=== PATIENT | female | born 1990 | race Caucasian/White ===

== ENCOUNTER 2018-09-25 22:54 | Inpatient (IN) | payer OTHER ==
[~2018-09-25] VITALS: Ht 167.6 cm; Wt 69.6 kg
[2018-09-26] VITALS (18 sets, daily range): BP systolic 80–119; BP diastolic 51–78; PULSE 80–107; RESP 4–47; Ht 167.6 cm; Wt 69.6 kg
[2018-09-26] MEDS ORDERED: PIPER-TAZO 3.375 GM IV (PMX) 100 ML IVPB STA (01:35)
[2018-09-26] MEDS ORDERED: SODIUM CHLORIDE 0.9% 1L BAG IV* STA (01:35)
[2018-09-26] MEDS ORDERED: VANCOMYCIN 1 GM (PMX) 250 ML IVPB STA (01:35)
[2018-09-26] MEDS ORDERED: morphine 4 MG/ML VIAL IV STA (01:35)
--- NOTE | 2018-09-26 01:43 | ERD ---
ER Documentation Chief Complaint Chief Complaint Pt reports R breast "mass" that has gotten worse over last 4 days HPI 28-year-old female presenting with right breast pain for the past 3 weeks, that has worsened over the last 4 days. She initially felt a lump in the right upper breast. She went to [facility] to get evaluated for this at that time. She had some clear yellow fluid leaking from the site. She was told that she had a breast cyst and was placed on antibiotics and pain medications. However her symptoms have not been improving and now she has noticed redness that has spread all over her breast with associated mass on the right lower breast. She has had associated intermittent fevers. Pain is a 7 out of 10, radiating all over her right breast. No other associated symptoms. No discharge from the nipple. She is not currently breast-feeding. ROS All systems reviewed and are negative except as per history of present illness. Allergies Allergies: Coded Allergies: No Known Allergy (Verified Allergy, Unknown, 11/04/07) PMhx/Soc Medical and Surgical Hx: pt denies Medical Hx, pt denies Surgical Hx FmHx No cancer Family History: diabetes (Father) Physical Exam Vitals Vital Signs Date Temp Pulse Resp B/P (MAP) Pulse Ox O2 O2 Flow FiO2 Time Delivery Rate 09/25/18 99.2 110 20 134/83 100 22:59 (100) Physical Exam Const: No acute distress Head: Atraumatic Eyes: Normal Conjunctiva ENT: Normal External Ears, Nose and Mouth. Neck: Full range of motion. No meningismus. Resp: Clear to auscultation bilaterally Breast: Left breast normal. Right breast with extensive erythema and dark discoloration surrounding and involving the whole right breast. There is a fluctuant large abscess in the right lower breast. Tenderness to palpation. No crepitus. No drainage. Cardio: Regular rate and rhythm, no murmurs Abd: Soft, non tender, non distended. Normal bowel sounds Skin: No petechiae or rashes Back: No midline or flank tenderness Ext: No cyanosis, or edema Neur: Awake and alert Psych: Normal Mood and Affect Result Diagram: 09/26/1814409/26/18144 Results 24 hrs Laboratory Tests Test 09/26/18 01:45 White Blood Count 9.3 10^3/ul Red Blood Count 4.43 10^6/ul Hemoglobin 11.3 g/dl Hematocrit 34.0 % Mean Corpuscular Volume 76.7 fl Mean Corpuscular Hemoglobin 25.5 pg Mean Corpuscular Hemoglobin Concent 33.2 g/dl Red Cell Distribution Width 12.7 % Platelet Count 447 10^3/UL Mean Platelet Volume 9.2 fl Immature Granulocytes % 0.300 % Neutrophils % 60.7 % Lymphocytes % 27.2 % Monocytes % 8.8 % Eosinophils % 2.5 % Basophils % 0.5 % Nucleated Red Blood Cells % 0.0 /100WBC Immature Granulocytes # 0.030 10^3/ul Neutrophils # 5.6 10^3/ul Lymphocytes # 2.5 10^3/ul Monocytes # 0.8 10^3/ul Eosinophils # 0.2 10^3/ul Basophils # 0.1 10^3/ul Nucleated Red Blood Cells # 0.0 10^3/ul Prothrombin Time 12.4 Sec Prothrombin Time Ratio 1.0 INR International Normalized Ratio 0.91 Activated Partial Thromboplast Time 24.7 Sec Sodium Level 141 mmol/L Potassium Level 3.9 mmol/L Chloride Level 104 mmol/L Carbon Dioxide Level 28 mmol/L Anion Gap 9 Blood Urea Nitrogen 14 mg/dl Creatinine 0.50 mg/dl Est Glomerular Filtrat Rate mL/min > 60 mL/min Glucose Level 90 mg/dl Lactic Acid Level 0.9 mmol/L Calcium Level 9.4 mg/dl Total Bilirubin 0.1 mg/dl Direct Bilirubin 0.00 mg/dl Indirect Bilirubin 0.1 mg/dl Aspartate Amino Transf (AST/SGOT) 81 IU/L Alanine Aminotransferase (ALT/SGPT) 62 IU/L Alkaline Phosphatase 107 IU/L Total Protein 7.5 g/dl Albumin 4.1 g/dl Globulin 3.40 g/dl Albumin/Globulin Ratio 1.20 Current Medications Medications Dose Sig/Valerie Start Time Status Last (Trade) Ordered Route PRN Stop Time Admin Dose Reason Admin Sodium 2,090 ml BOLUS OVER 2 09/26/18 DC 09/26/18 Chloride HOURS STAT 01:35 09/26/18 02:14 (NS) IV* 01:37 Morphine 4 mg ONCE STAT 09/26/18 DC 09/26/18 Sulfate IV 01:35 09/26/18 01:15 (morphine) 01:37 Vancomycin 250 ml @ ONCE STAT 09/26/18 09/26/18 HCl 125 mls/hr IVPB 01:35 09/26/18 02:53 03:34 Piperacillin 100 ml @ ONCE STAT 09/26/18 DC 09/26/18 Sod/ 200 mls/hr IVPB 01:35 09/26/18 02:13 Tazobactam 02:04 Sod Procedures/MDM EMERGENT LABS AND DIAGNOSTIC STUDIES: Lab Results above were reviewed and interpreted by me. CBC: No leukocytosis. Mild anemia. thrombocytosis, likely secondary to infection CMP: No evidence of electrolyte abnormality, renal failure, hypoglycemia, liver failure, or biliary obstruction Lactate within normal limits without evidence of sepsis or tissue hypoperfusion Radiology Results as interpreted by Radiology below were reviewed by Wagner Cohen MD: Chest x-ray shows no acute abnormalities Right breast ultrasound pending Initial Nursing notes reviewed. Previous Medical Records requested via the Electronic Health Record. EMERGENCY DEPARTMENT COURSE / MEDICAL DECISION MAKING: Patient is presenting with evidence of a right breast abscess with associated cellulitis. Do not suspect necrotizing fasciitis. IV antibiotics were started. Patient will require admission for surgical drainage and IV antibiotics. I spoke with Dr. Yao, the surgeon on-call, who agreed to see the patient in the morning. Accepting Care Team: Current data and ongoing care discussed. Time: Time of admission Primary Provider: Dr. Reich Consulting: Dr. Yao with Gen Surg Outstanding Data: none Departure Diagnosis: Primary Impression: Abscess of right breast Additional Impression: Cellulitis of right breast Condition: Serious GIA COHEN MD Sep 26, 2018 01:43
[2018-09-26] MEDS ORDERED: ONDANSETRON 4 MG INJ IV PRN ×4 (03:00→19:00)
[2018-09-26] MEDS ORDERED: ACETAMINOPHEN 325 MG TAB PO PRN ×2 (03:00→04:00)
[2018-09-26] MEDS ORDERED: ALBUTEROL/IPRATROPIUM (NEB) 3 ML AMP HHN PRN (04:00)
[2018-09-26] MEDS: HYDROCODONE/APAP (5/325) TAB PO PRN ×2 (04:16→12:49)
[2018-09-26] MEDS: SOD CHLORIDE 0.9% 1,000 ML IV SCH ×4 (04:17→23:46)
--- NOTE | 2018-09-26 05:33 | HP ---
Date/Time of Note Date/Time of Note DATE: 09/26/18 TIME: 05:29 Assessment/Plan VTE Prophylaxis Pharmacological prophylaxis: heparin Lines/Catheters IV Catheter Type (from Nrsg): Saline Lock Assessment/Plan Assessment/Plan 1. Right breast cellulitis with possible abscess -IV antibiotic -Obtain breast ultrasound -ID and surgical consult 2. Normocytic anemia: Ferritin/iron to workup for iron deficiency. Can follow this up with PCP for outpatient pelvic ultrasound to evaluate for fibroid Result Diagram: 09/26/18 0145 09/26/18 0145 Results 24hrs Laboratory Tests Test 09/26/18 01:45 09/26/18 03:40 09/26/18 03:53 White Blood Count 9.3 Red Blood Count 4.43 Hemoglobin 11.3 L Hematocrit 34.0 L Mean Corpuscular Volume 76.7 L Mean Corpuscular Hemoglobin 25.5 L Mean Corpuscular Hemoglobin Concent 33.2 Red Cell Distribution Width 12.7 Platelet Count 447 H Mean Platelet Volume 9.2 Immature Granulocytes % 0.300 Neutrophils % 60.7 Lymphocytes % 27.2 Monocytes % 8.8 Eosinophils % 2.5 Basophils % 0.5 Nucleated Red Blood Cells % 0.0 Immature Granulocytes # 0.030 Neutrophils # 5.6 Lymphocytes # 2.5 Monocytes # 0.8 Eosinophils # 0.2 Basophils # 0.1 Nucleated Red Blood Cells # 0.0 Prothrombin Time 12.4 Prothrombin Time Ratio 1.0 INR International Normalized Ratio 0.91 Activated Partial Thromboplast Time 24.7 Sodium Level 141 Potassium Level 3.9 Chloride Level 104 Carbon Dioxide Level 28 Anion Gap 9 Blood Urea Nitrogen 14 Creatinine 0.50 Est Glomerular Filtrat Rate mL/min > 60 Glucose Level 90 Lactic Acid Level 0.9 Calcium Level 9.4 Total Bilirubin 0.1 L Direct Bilirubin 0.00 Indirect Bilirubin 0.1 Aspartate Amino Transf (AST/SGOT) 81 H Alanine Aminotransferase (ALT/SGPT) 62 Alkaline Phosphatase 107 Total Protein 7.5 Albumin 4.1 Globulin 3.40 H Albumin/Globulin Ratio 1.20 Bedside Urine pH (LAB) 7.0 Bedside Urine Protein (LAB) Negative Bedside Urine Glucose (UA) Negative Bedside Urine Ketones (LAB) Negative Bedside Urine Blood 1+ H Bedside Urine Nitrite (LAB) Positive H Bedside Urine Leukocyte Esterase (L Trace H POC Beta HCG, Qualitative NEGATIVE HPI/ROS Admit Date/Time Admit Date/Time Sep 26, 2018 at 02:58 Hx of Present Illness This is a 28-year-old female with no significant past medical history who presents the ER complaining of right breast swelling, redness and tenderness. This is been going on for over a week and has been progressively getting worse. She also reported nipple discharge. She initially presented to an outside hospital and was diagnosed with cysts and there was taking antibiotic. PMH/Family/Social Past Medical History Medical History: no pertinent history Medications Current Medications Ondansetron HCl (Zofran Inj) 4 mg BRIDGE ORDER PRN IV NAUSEA/VOMITING; Start 09/26/18 at 03:00; Stop 09/27/18 at 02:59 Acetaminophen (Tylenol Tab) 650 mg ER BRIDGE PRN PO .MILD PAIN 1-3 OR TEMP; Start 09/26/18 at 03:00; Stop 09/27/18 at 02:59 Sodium Chloride 1,000 ml @ 100 mls/hr Q10H IV Last administered on 09/26/18at 04:17; Admin Dose 100 MLS/HR; Start 09/26/18 at 03:46; Stop 09/27/18 at 20:00 IV Flush (NS 3 ml) 3 ml PER PROTOCOL IV ; Start 09/26/18 at 04:00 Ondansetron HCl (Zofran Inj) 4 mg Q6H PRN IV NAUSEA/VOMITING; Start 09/26/18 at 04:00 Acetaminophen (Tylenol Tab) 650 mg Q6H PRN PO .PAIN 1-3 OR TEMP; Start 09/26/18 at 04:00 Acetaminophen/ Hydrocodone Bitart ([place] (5/325)) 1 tab Q6H PRN PO .MOD PAIN 4- 6; Start 09/26/18 at 04:00 Acetaminophen/ Hydrocodone Bitart ([place] (5/325)) 2 tab Q6H PRN PO .SEVERE PAIN 7-10 Last administered on 09/26/18at 04:16; Admin Dose 2 TAB; Start 09/26/18 at 04:00 Albuterol/ Ipratropium (Duoneb) 3 ml Q2H RESP THERAPY PRN HHN SHORTNESS OF BREATH; Start 09/26/18 at 04:00 Vancomycin HCl (Vanco Iv Per Pharmacy) VANCOMYCIN PER PHARMACY PER PROTOCOL XX ; Start 09/26/18 at 09:00 Piperacillin Sod/ Tazobactam Sod 100 ml @ 200 mls/hr Q6 IVPB ; Start 09/26/18 at 07:00 Vancomycin HCl 250 ml @ 125 mls/hr Q8H IVPB ; Start 09/26/18 at 09:00 Influenza Virus Vaccine Quadrival (Fluzone) 0.5 ml ONCE ONCE IM* ; Start 09/28/18 at 10:00; Stop 09/28/18 at 10:01 Coded Allergies: No Known Allergy (Verified Allergy, Unknown, 11/04/07) Past Surgical History Past Surgical Hx: no surgical history Family History Significant Family History: no pertinent family hx Social History Alcohol Use: occasionally Smoking Status: Never smoker Drug Use: none Exam/Review of Systems Vital Signs Vitals Vital Signs Date Temp Pulse Resp B/P (MAP) Pulse Ox O2 O2 Flow FiO2 Time Delivery Rate 09/26/18 98.1 107 19 116/78 99 04:25 (91) 09/26/18 Room Air 03:24 Intake and Output 09/25/18 09/25/18 09/26/18 1414:59 22:59 06:59 IntakeIntake Total 1350 ml BalanceBalance 1350 ml Exam Constitutional: alert, oriented, well developed Head: normocephalic, atraumatic Eyes: EOMI, PERRL Respiratory: clear to auscultation, normal air movement Cardiovascular: regular rate and rhythm, nl pulses Gastrointestinal: soft, non-tender Extremities: normal pulses Additional Comments Right breast swelling/erythema and tenderness ABBE ARAYA MD Sep 26, 2018 05:33
[2018-09-26] MEDS: PIPER-TAZO 3.375 GM IV (PMX) 100 ML IVPB SCH ×4 (06:38→20:28)
[2018-09-26] MEDS: VANCOMYCIN 1 GM 250 ML IVPB SCH ×2 (08:55→17:18)
[2018-09-26] MEDS ORDERED: VANCOMYCIN IV PER PHARMACY XX SCH (09:00)
--- NOTE | 2018-09-26 09:56 | CONS ---
Assessment/Plan Assessment/Plan Assessment/Plan (Daily) Abscess right breast Plan: Incision and drainage today Consultation Date/Type/Reason Admit Date/Time Sep 26, 2018 at 02:58 Date of Consultation: Sep 26, 2018 Type of Consult General surgery Reason for Consultation Abscess right breast Date/Time of Note DATE: 09/26/18 TIME: 09:52 Hx of Present Illness The patient is an otherwise healthy 28-year-old female who was having some vague breast discomfort for approximately a week or so. She states that 4 days ago she developed what she describes as a pimple on her breast which rapidly enlarged and caused her breast to become distended red and tender. In the emergency room she was noted to have a large right breast abscess. Ultrasound showed a hypervascular lesion, compatible with either malignancy or abscess. Also noted was right axillary lymphadenopathy. The patient has had no breast trauma and is not breast-feeding Constitutional: no complaints Eyes: no complaints ENT: no complaints Respiratory: no complaints Cardiovascular: no complaints Gastrointestinal: no complaints Genitourinary: no complaints Musculoskeletal: no complaints Skin: other (As in the HPI) Neurologic: no complaints Endocrine: no complaints Psychological: no complaints Immunologic: no complaints Past Medical History Medical History: no pertinent history Medications Current Medications Ondansetron HCl (Zofran Inj) 4 mg BRIDGE ORDER PRN IV NAUSEA/VOMITING; Start 09/26/18 at 03:00; Stop 09/27/18 at 02:59 Acetaminophen (Tylenol Tab) 650 mg ER BRIDGE PRN PO .MILD PAIN 1-3 OR TEMP; Start 09/26/18 at 03:00; Stop 09/27/18 at 02:59 Sodium Chloride 1,000 ml @ 100 mls/hr Q10H IV Last administered on 09/26/18at 04:17; Admin Dose 100 MLS/HR; Start 09/26/18 at 03:46; Stop 09/27/18 at 20:00 IV Flush (NS 3 ml) 3 ml PER PROTOCOL IV ; Start 09/26/18 at 04:00 Ondansetron HCl (Zofran Inj) 4 mg Q6H PRN IV NAUSEA/VOMITING; Start 09/26/18 at 04:00 Acetaminophen (Tylenol Tab) 650 mg Q6H PRN PO .PAIN 1-3 OR TEMP; Start 09/26/18 at 04:00 Acetaminophen/ Hydrocodone Bitart ([place] (5/325)) 1 tab Q6H PRN PO .MOD PAIN 4- 6; Start 09/26/18 at 04:00 Acetaminophen/ Hydrocodone Bitart ([place] (5/325)) 2 tab Q6H PRN PO .SEVERE PAIN 7-10 Last administered on 09/26/18at 04:16; Admin Dose 2 TAB; Start 09/26/18 at 04:00 Albuterol/ Ipratropium (Duoneb) 3 ml Q2H RESP THERAPY PRN HHN SHORTNESS OF BREATH; Start 09/26/18 at 04:00 Vancomycin HCl (Vanco Iv Per Pharmacy) VANCOMYCIN PER PHARMACY PER PROTOCOL XX ; Start 09/26/18 at 09:00 Piperacillin Sod/ Tazobactam Sod 100 ml @ 200 mls/hr Q6 IVPB Last administered on 09/26/18at 06:38; Admin Dose 200 MLS/HR; Start 09/26/18 at 07:00 Vancomycin HCl 250 ml @ 125 mls/hr Q8H IVPB Last administered on 09/26/18at 08:55; Admin Dose 125 MLS/HR; Start 09/26/18 at 09:00 Influenza Virus Vaccine Quadrival (Fluzone) 0.5 ml ONCE ONCE IM* ; Start 09/28/18 at 10:00; Stop 09/28/18 at 10:01 Allergies: Coded Allergies: No Known Allergy (Verified Allergy, Unknown, 11/04/07) Past Surgical History Past Surgical Hx: no surgical history Family History Significant Family History: no pertinent family hx Social History Alcohol Use: occasionally Smoking Status: Never smoker Drug Use: none Exam/Review of Systems Exam Vitals Vital Signs Date Temp Pulse Resp B/P (MAP) Pulse Ox O2 O2 Flow FiO2 Time Delivery Rate 09/26/18 97.7 86 15 116/58 92 07:55 (77) 09/26/18 Room Air 03:24 Intake and Output 09/25/18 09/25/18 09/26/18 1515:00 23:00 07:00 IntakeIntake Total 1350 ml BalanceBalance 1350 ml Constitutional: alert, oriented Psych: no complaints Head: normocephalic Eyes: nl conjunctiva ENMT: nl external ears & nose Neck: supple Respiratory: clear to auscultation Cardiovascular: regular rate and rhythm Gastrointestinal: soft Musculoskeletal: nl extremities to inspection Skin: other (The right breast is 3 times the size of the left and contains a large fluctuant abscess. There is palpable right axillary adenopathy) Lymph: other (Right axillary adenopathy) Results Result Diagram: 09/26/18 0145 09/26/18 0145 Results 24hrs Laboratory Tests Test 09/26/18 01:45 09/26/18 03:40 09/26/18 03:53 09/26/18 04:29 White Blood Count 9.3 Red Blood Count 4.43 Hemoglobin 11.3 L Hematocrit 34.0 L Mean Corpuscular Volume 76.7 L Mean Corpuscular 25.5 L Hemoglobin Mean Corpuscular 33.2 Hemoglobin Concent Red Cell Distribution 12.7 Width Platelet Count 447 H Mean Platelet Volume 9.2 Immature Granulocytes % 0.300 Neutrophils % 60.7 Lymphocytes % 27.2 Monocytes % 8.8 Eosinophils % 2.5 Basophils % 0.5 Nucleated Red Blood 0.0 Cells % Immature Granulocytes # 0.030 Neutrophils # 5.6 Lymphocytes # 2.5 Monocytes # 0.8 Eosinophils # 0.2 Basophils # 0.1 Nucleated Red Blood 0.0 Cells # Prothrombin Time 12.4 Prothrombin Time Ratio 1.0 INR International 0.91 Normalized Ratio Activated 24.7 Partial Thromboplast Time Sodium Level 141 Potassium Level 3.9 Chloride Level 104 Carbon Dioxide Level 28 Anion Gap 9 Blood Urea Nitrogen 14 Creatinine 0.50 Est Glomerular Filtrat > 60 Rate mL/min Glucose Level 90 Lactic Acid Level 0.9 0.8 Calcium Level 9.4 Total Bilirubin 0.1 L Direct Bilirubin 0.00 Indirect Bilirubin 0.1 Aspartate Amino 81 H Transf (AST/SGOT) Alanine 62 Aminotransferase (ALT/SG PT) Alkaline Phosphatase 107 Total Protein 7.5 Albumin 4.1 Globulin 3.40 H Albumin/Globulin Ratio 1.20 Bedside Urine pH (LAB) 7.0 Bedside Urine Protein Negative (LAB) Bedside Urine Glucose Negative (UA) Bedside Urine Ketones Negative (LAB) Bedside Urine Blood 1+ H Bedside Urine Nitrite Positive H (LAB) Bedside Urine Trace H Leukocyte Esterase (L POC Beta HCG, NEGATIVE Qualitative Test 09/26/18 06:50 Lactic Acid Level 1.3 Iron Level 25 L Total Iron Binding 234 L Capacity Percent Iron Saturation 11 L Ferritin 136.0 Medications Medication Current Medications Ondansetron HCl (Zofran Inj) 4 mg BRIDGE ORDER PRN IV NAUSEA/VOMITING; Start 09/26/18 at 03:00; Stop 09/27/18 at 02:59 Acetaminophen (Tylenol Tab) 650 mg ER BRIDGE PRN PO .MILD PAIN 1-3 OR TEMP; Start 09/26/18 at 03:00; Stop 09/27/18 at 02:59 Sodium Chloride 1,000 ml @ 100 mls/hr Q10H IV Last administered on 09/26/18at 04 :17; Admin Dose 100 MLS/HR; Start 09/26/18 at 03:46; Stop 09/27/18 at 20:00 IV Flush (NS 3 ml) 3 ml PER PROTOCOL IV ; Start 09/26/18 at 04:00 Ondansetron HCl (Zofran Inj) 4 mg Q6H PRN IV NAUSEA/VOMITING; Start 09/26/18 at 04:00 Acetaminophen (Tylenol Tab) 650 mg Q6H PRN PO .PAIN 1-3 OR TEMP; Start 09/26/18 at 04:00 Acetaminophen/ Hydrocodone Bitart ([place] (5/325)) 1 tab Q6H PRN PO .MOD PAIN 4- 6; Start 09/26/18 at 04:00 Acetaminophen/ Hydrocodone Bitart ([place] (5/325)) 2 tab Q6H PRN PO .SEVERE PAIN 7-10 Last administered on 09/26/18at 04:16; Admin Dose 2 TAB; Start 09/26/18 at 04:00 Albuterol/ Ipratropium (Duoneb) 3 ml Q2H RESP THERAPY PRN HHN SHORTNESS OF BREATH; Start 09/26/18 at 04:00 Vancomycin HCl (Vanco Iv Per Pharmacy) VANCOMYCIN PER PHARMACY PER PROTOCOL XX ; Start 09/26/18 at 09:00 Piperacillin Sod/ Tazobactam Sod 100 ml @ 200 mls/hr Q6 IVPB Last administered on 09/26/18at 06:38; Admin Dose 200 MLS/HR; Start 09/26/18 at 07:00 Vancomycin HCl 250 ml @ 125 mls/hr Q8H IVPB Last administered on 09/26/18at 08:55; Admin Dose 125 MLS/HR; Start 09/26/18 at 09:00 Influenza Virus Vaccine Quadrival (Fluzone) 0.5 ml ONCE ONCE IM* ; Start 09/28/18 at 10:00; Stop 09/28/18 at 10:01 OLGA EVANGELISTA MD Sep 26, 2018 09:56
--- NOTE | 2018-09-26 14:22 | PN ---
Date/Time of Note Date/Time of Note DATE: 09/26/18 TIME: 14:20 Assessment/Plan VTE Prophylaxis Risk score (from Ns)>0 risk: 0 SCD applied (from Ns): No SCD contraindicated: other Pharmacological prophylaxis: heparin Lines/Catheters IV C[facility]ter Type (from [facility]): Peripheral IV Assessment/Plan Hospital Course S: Patient had no acute events overnight, seen by surgery team earlier, waiting for surgical incision and drainage to be performed later today. O: VS- see below PE: Gen: alert, oriented, lying in bed Psych: no complaints Head: normocephalic Eyes: nl conjunctiva ENMT: nl external ears & nose Neck: supple Respiratory: clear to auscultation Cardiovascular: regular rate and rhythm Gastrointestinal: soft Musculoskeletal: nl extremities to inspection Skin: other (Right axillary adenopathy, right breast is 3 times the size of the left and contains a large fluctuant abscess. There is palpable right axillary adenopathy) Ultrasound right breast September 26, 2018: IMPRESSION: 1. Right breast hypervascular mass measuring 11.3 x 10.1 x 9.5 cm . Further evaluation by correlation with mammogram and MRI is recommended. Diagnostic considerations include malignancy and abscess. 2. Enlarged right axillary lymph nodes measuring up to 2.4 cm. Assessment/Plan: 28-year-old female who presents with: 1. Right breast cellulitis with possible abscess -noted on ultrasound. -For now continue IV antibiotic, Tylenol as needed pain and fevers, follow final culture results -Follow-up breast MRI report results -Planning for incision and drainage later today by surgical consult team, follow-up post procedure recommendation 2. Normocytic anemia: Hemoglobin presently stable -Follow-up ferritin/iron workup for iron deficiency. -Can follow this up with PCP for outpatient pelvic ultrasound to evaluate for fibroid Result Diagram: 09/26/18 0145 09/26/18 0145 Results 24hrs Laboratory Tests Test 09/26/18 01:45 09/26/18 03:40 09/26/18 03:53 09/26/18 04:29 White Blood Count 9.3 Red Blood Count 4.43 Hemoglobin 11.3 L Hematocrit 34.0 L Mean Corpuscular Volume 76.7 L Mean Corpuscular 25.5 L Hemoglobin Mean Corpuscular 33.2 Hemoglobin Concent Red Cell Distribution 12.7 Width Platelet Count 447 H Mean Platelet Volume 9.2 Immature Granulocytes % 0.300 Neutrophils % 60.7 Lymphocytes % 27.2 Monocytes % 8.8 Eosinophils % 2.5 Basophils % 0.5 Nucleated Red Blood 0.0 Cells % Immature Granulocytes # 0.030 Neutrophils # 5.6 Lymphocytes # 2.5 Monocytes # 0.8 Eosinophils # 0.2 Basophils # 0.1 Nucleated Red Blood 0.0 Cells # Prothrombin Time 12.4 Prothrombin Time Ratio 1.0 INR International 0.91 Normalized Ratio Activated 24.7 Partial Thromboplast Time Sodium Level 141 Potassium Level 3.9 Chloride Level 104 Carbon Dioxide Level 28 Anion Gap 9 Blood Urea Nitrogen 14 Creatinine 0.50 Est Glomerular Filtrat > 60 Rate mL/min Glucose Level 90 Lactic Acid Level 0.9 0.8 Calcium Level 9.4 Total Bilirubin 0.1 L Direct Bilirubin 0.00 Indirect Bilirubin 0.1 Aspartate Amino 81 H Transf (AST/SGOT) Alanine 62 Aminotransferase (ALT/SG PT) Alkaline Phosphatase 107 Total Protein 7.5 Albumin 4.1 Globulin 3.40 H Albumin/Globulin Ratio 1.20 Bedside Urine pH (LAB) 7.0 Bedside Urine Protein Negative (LAB) Bedside Urine Glucose Negative (UA) Bedside Urine Ketones Negative (LAB) Bedside Urine Blood 1+ H Bedside Urine Nitrite Positive H (LAB) Bedside Urine Trace H Leukocyte Esterase (L POC Beta HCG, NEGATIVE Qualitative Test 09/26/18 06:50 Lactic Acid Level 1.3 Iron Level 25 L Total Iron Binding 234 L Capacity Percent Iron Saturation 11 L Ferritin 136.0 Exam/Review of Systems Exam Vitals Vital Signs Date Temp Pulse Resp B/P (MAP) Pulse Ox O2 O2 Flow FiO2 Time Delivery Rate 09/26/18 97.7 86 15 116/58 92 07:55 (77) 09/26/18 Room Air 03:24 Intake and Output 09/25/18 09/25/18 09/26/18 1515:00 23:00 07:00 IntakeIntake Total 1350 ml BalanceBalance 1350 ml Results Results 24hrs Laboratory Tests Test 09/26/18 01:45 09/26/18 03:40 09/26/18 03:53 09/26/18 04:29 White Blood Count 9.3 Red Blood Count 4.43 Hemoglobin 11.3 L Hematocrit 34.0 L Mean Corpuscular Volume 76.7 L Mean Corpuscular 25.5 L Hemoglobin Mean Corpuscular 33.2 Hemoglobin Concent Red Cell Distribution 12.7 Width Platelet Count 447 H Mean Platelet Volume 9.2 Immature Granulocytes % 0.300 Neutrophils % 60.7 Lymphocytes % 27.2 Monocytes % 8.8 Eosinophils % 2.5 Basophils % 0.5 Nucleated Red Blood 0.0 Cells % Immature Granulocytes # 0.030 Neutrophils # 5.6 Lymphocytes # 2.5 Monocytes # 0.8 Eosinophils # 0.2 Basophils # 0.1 Nucleated Red Blood 0.0 Cells # Prothrombin Time 12.4 Prothrombin Time Ratio 1.0 INR International 0.91 Normalized Ratio Activated 24.7 Partial Thromboplast Time Sodium Level 141 Potassium Level 3.9 Chloride Level 104 Carbon Dioxide Level 28 Anion Gap 9 Blood Urea Nitrogen 14 Creatinine 0.50 Est Glomerular Filtrat > 60 Rate mL/min Glucose Level 90 Lactic Acid Level 0.9 0.8 Calcium Level 9.4 Total Bilirubin 0.1 L Direct Bilirubin 0.00 Indirect Bilirubin 0.1 Aspartate Amino 81 H Transf (AST/SGOT) Alanine 62 Aminotransferase (ALT/SG PT) Alkaline Phosphatase 107 Total Protein 7.5 Albumin 4.1 Globulin 3.40 H Albumin/Globulin Ratio 1.20 Bedside Urine pH (LAB) 7.0 Bedside Urine Protein Negative (LAB) Bedside Urine Glucose Negative (UA) Bedside Urine Ketones Negative (LAB) Bedside Urine Blood 1+ H Bedside Urine Nitrite Positive H (LAB) Bedside Urine Trace H Leukocyte Esterase (L POC Beta HCG, NEGATIVE Qualitative Test 09/26/18 06:50 Lactic Acid Level 1.3 Iron Level 25 L Total Iron Binding 234 L Capacity Percent Iron Saturation 11 L Ferritin 136.0 Medications Medication Current Medications Ondansetron HCl (Zofran Inj) 4 mg BRIDGE ORDER PRN IV NAUSEA/VOMITING; Start 09/26/18 at 03:00; Stop 09/27/18 at 02:59 Acetaminophen (Tylenol Tab) 650 mg ER BRIDGE PRN PO .MILD PAIN 1-3 OR TEMP; Start 09/26/18 at 03:00; Stop 09/27/18 at 02:59 Sodium Chloride 1,000 ml @ 100 mls/hr Q10H IV Last administered on 09/26/18at 04:17; Admin Dose 100 MLS/HR; Start 09/26/18 at 03:46; Stop 09/27/18 at 20:00 IV Flush (NS 3 ml) 3 ml PER PROTOCOL IV ; Start 09/26/18 at 04:00 Ondansetron HCl (Zofran Inj) 4 mg Q6H PRN IV NAUSEA/VOMITING; Start 09/26/18 at 04:00 Acetaminophen (Tylenol Tab) 650 mg Q6H PRN PO .PAIN 1-3 OR TEMP; Start 09/26/18 at 04:00 Acetaminophen/ Hydrocodone Bitart ([place] (5/325)) 1 tab Q6H PRN PO .MOD PAIN 4- 6; Start 09/26/18 at 04:00 Acetaminophen/ Hydrocodone Bitart ([place] (5/325)) 2 tab Q6H PRN PO .SEVERE PAIN 7-10 Last administered on 09/26/18at 12:49; Admin Dose 2 TAB; Start 09/26/18 at 04:00 Albuterol/ Ipratropium (Duoneb) 3 ml Q2H RESP THERAPY PRN HHN SHORTNESS OF BREATH; Start 09/26/18 at 04:00 Vancomycin HCl (Vanco Iv Per Pharmacy) VANCOMYCIN PER PHARMACY PER PROTOCOL XX ; Start 09/26/18 at 09:00 Piperacillin Sod/ Tazobactam Sod 100 ml @ 200 mls/hr Q6 IVPB Last administered on 09/26/18at 12:03; Admin Dose 200 MLS/HR; Start 09/26/18 at 07:00 Vancomycin HCl 250 ml @ 125 mls/hr Q8H IVPB Last administered on 09/26/18at 08:55; Admin Dose 125 MLS/HR; Start 09/26/18 at 09:00 Influenza Virus Vaccine Quadrival (Fluzone) 0.5 ml ONCE ONCE IM* ; Start 09/28/18 at 10:00; Stop 09/28/18 at 10:01 Miscellaneous Information (*Rx Drug Level Order Reminder*) VANCO TR 09/27 AT 0800 ONCE ONCE XX ; Start 09/27/18 at 08:00; Stop 09/27/18 at 08:01 ELIOT BENZ Sep 26, 2018 14:22
--- NOTE | 2018-09-26 18:04 | PREAC ---
Date/Time of Note Date/Time of Note DATE: 09/26/18 TIME: 18:03 Anesthesia Eval and Record Evaluation Time Pre-Procedure Interview DATE: 09/26/18 TIME: 18:03 Age 28 Sex female NPO: 8 hrs Preoperative diagnosis right breast abscess Planned procedure i and d right breast abscess Past Medical History Past Medical History: Includes Heme: Anemia Surgery & Anesthesia Issues No known issue Meds Anticoagulation: No Beta Alison within 24 hr: No Reason Beta Alison not given: Pt. not on B-Alison Current Medications Ondansetron HCl (Zofran Inj) 4 mg BRIDGE ORDER PRN IV NAUSEA/VOMITING; Start 09/26/18 at 03:00; Stop 09/27/18 at 02:59 Acetaminophen (Tylenol Tab) 650 mg ER BRIDGE PRN PO .MILD PAIN 1-3 OR TEMP; Start 09/26/18 at 03:00; Stop 09/27/18 at 02:59 Sodium Chloride 1,000 ml @ 100 mls/hr Q10H IV Last administered on 09/26/18at 17:08; Admin Dose 100 MLS/HR; Start 09/26/18 at 03:46; Stop 09/27/18 at 20:00 IV Flush (NS 3 ml) 3 ml PER PROTOCOL IV ; Start 09/26/18 at 04:00 Ondansetron HCl (Zofran Inj) 4 mg Q6H PRN IV NAUSEA/VOMITING; Start 09/26/18 at 04:00 Acetaminophen (Tylenol Tab) 650 mg Q6H PRN PO .PAIN 1-3 OR TEMP; Start 09/26/18 at 04:00 Acetaminophen/ Hydrocodone Bitart ([place] (5/325)) 1 tab Q6H PRN PO .MOD PAIN 4- 6; Start 09/26/18 at 04:00 Acetaminophen/ Hydrocodone Bitart ([place] (5/325)) 2 tab Q6H PRN PO .SEVERE PAIN 7-10 Last administered on 09/26/18at 12:49; Admin Dose 2 TAB; Start 09/26/18 at 04:00 Albuterol/ Ipratropium (Duoneb) 3 ml Q2H RESP THERAPY PRN HHN SHORTNESS OF BREATH; Start 09/26/18 at 04:00 Vancomycin HCl (Vanco Iv Per Pharmacy) VANCOMYCIN PER PHARMACY PER PROTOCOL XX ; Start 09/26/18 at 09:00 Piperacillin Sod/ Tazobactam Sod 100 ml @ 200 mls/hr Q6 IVPB Last administered on 09/26/18at 12:03; Admin Dose 200 MLS/HR; Start 09/26/18 at 07:00 Vancomycin HCl 250 ml @ 125 mls/hr Q8H IVPB Last administered on 09/26/18at 17:18; Admin Dose 125 MLS/HR; Start 09/26/18 at 09:00 Influenza Virus Vaccine Quadrival (Fluzone) 0.5 ml ONCE ONCE IM* ; Start 09/28/18 at 10:00; Stop 09/28/18 at 10:01 Miscellaneous Information (*Rx Drug Level Order Reminder*) VANCO TR 09/27 AT 0800 ONCE ONCE XX ; Start 09/27/18 at 08:00; Stop 09/27/18 at 08:01 Meds reviewed: Yes Allergies Coded Allergies: No Known Allergy (Verified Allergy, Unknown, 11/04/07) Allergies Reviewed: Yes Labs/Studies Labs Reviewed: Reviewed by anesthesiologist Result Diagram: 09/26/18 0145 09/26/18 0145 Laboratory Tests 09/26/18 01:45 test: Negative Pre-procedure Exam Last vitals Vital Signs Date Temp Pulse Resp B/P (MAP) Pulse Ox O2 O2 Flow FiO2 Time Delivery Rate 09/26/18 98.9 86 16 119/59 98 15:52 (79) 09/26/18 Room Air 03:24 Airway: Adequate mouth opening, Adequate thyromental dist Mallampati: Mallampati I Teeth: Normal Lung: Normal Heart: Normal ASA Physical Status ASA physical status: 2 Emergency: None Planned Anesthetic General/MAC: LMA Planned Pain Management Parenteral pain med Pre-operative Attestations Prior to commencing anesthesia and surgery, the patient was re-evaluated, there was verification of: *The patient's identity *The results of appropriate recent lab work and preoperative vital signs *The above evaluation not changing prior to induction *Anesthetic plan, risk benefits, alternative and complications discussed with patient/family; questions answered; patient/family understands, accepts and wishes to proceed. CARLA MCKEON Sep 26, 2018 18:04
[2018-09-26] MEDS ORDERED: FENTAnyl 50 MCG/ML VIAL ONE (18:23)
[2018-09-26] MEDS ORDERED: DEXAMETHASONE 4 MG/ML 5 ML INJ ONE (18:34)
[2018-09-26] MEDS ORDERED: ONDANSETRON 4 MG INJ ONE (18:35)
[2018-09-26] MEDS ORDERED: PROPOFOL 20 ML ONE (18:49)
[2018-09-26] MEDS ORDERED: ALBUTEROL 0.083% (NEB) 2.5 MG/3 ML AMP HHN PRN (19:00)
[2018-09-26] MEDS ORDERED: LABETALOL HCL 20MG INJ IV PRN (19:00)
[2018-09-26] MEDS ORDERED: FENTAnyl 50 MCG/ML VIAL IV PRN ×3 (19:00)
[2018-09-26] MEDS ORDERED: hydrALAzine 20 MG INJ IV PRN (19:00)
[2018-09-26] MEDS ORDERED: MEPERIDINE 25 MG INJ IV PRN (19:00)
[2018-09-26] MEDS ORDERED: morphine 2 MG INJ IV PRN (19:00)
[2018-09-26] MEDS ORDERED: HYDROmorphONE 1 MG/5 ML IV SYRINGE IV PRN ×3 (19:00)
[2018-09-26] MEDS ORDERED: EPHEDrine SULFATE 50 MG/5 ML SYG IV PRN (19:00)
[2018-09-26] MEDS ORDERED: DIPHENHYDRAMINE 50 MG INJ IV PRN (19:00)
[2018-09-26] MEDS ORDERED: METOCLOPRAMIDE 10 MG INJ IV PRN (19:00)
--- NOTE | 2018-09-26 19:00 | OPR ---
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 Incision and drainage 2. Partial excisional biopsy right breast mass Surgeon Olga Evangelista MD [facility] [employer] None Anesthesia Type: general Anesthesiologist: CARLA MCKEON Estimated Blood Loss: 50 - 100 ml's Transfusion none Specimen 1. Portion of right breast mass 2. Culture and sensitivity Grafts/Implants none Tubes/Drains None Complications none Pt Condition Post Procedure: stable Disposition: PACU Indications Painful swelling right breast and possible abscess Procedure Description After satisfactory general anesthesia was achieved the right breast was prepped and draped in the usual fashion. After timeout 60 cc syringe was inserted into the center of the breast from the right lower outer quadrant retrieving 60 cc of bloody fluid. This was sent for cultures and sensitivities. Next a 5 cm transv erse skin incision was made in the lower outer right breast and carried down to subcutaneous tissues. Encountered was a virtual replacement of the entire breast by necrotic tumor. A large portion of this necrotic tumor was able to be stopped out by manual dissection. This was submitted for pathology. The wound was then irrigated with sterile water and packed with a 6 inch Kerlix roll soaked in saline. A dry dressing was applied. Sponge and needle counts were reported as correct x2. OLGA EVANGELISTA MD Sep 26, 2018 19:00
--- NOTE | 2018-09-26 19:02 | PAC ---
Date/Time of Note Date/Time of Note DATE: 09/26/18 TIME: 19:01 Post-Anesthesia Notes Post-Anesthesia Note Last documented vital signs Vital Signs Date Temp Pulse Resp B/P (MAP) Pulse Ox O2 O2 Flow FiO2 Time Delivery Rate 09/26/18 98.9 86 16 119/59 98 1901 (79) 09/26/18 Room Air 03:24 Activity: WNL Respiratory function: WNL Cardiovascular function: WNL Mental status: Baseline Pain reasonably controlled: Yes Hydration appropriate: Yes Nausea/Vomiting absent: Yes CARLA MCKEON Sep 26, 2018 19:02
[2018-09-27] MEDS: PIPER-TAZO 3.375 GM IV (PMX) 100 ML IVPB SCH ×4 (00:09→17:16)
[2018-09-27] MEDS: VANCOMYCIN 1 GM 250 ML IVPB SCH ×2 (01:14→09:06)
[2018-09-27 02:00] VITALS: BP 106/60; PULSE 88; RESP 19
[2018-09-27] MEDS: HYDROCODONE/APAP (5/325) TAB PO PRN ×3 (02:27→17:16)
[2018-09-27 07:50] VITALS: BP 102/58; PULSE 84; RESP 18
--- NOTE | 2018-09-27 12:24 | QN ---
Documentation Comment Postoperative day #1 Right breast is significantly decompressed Packing removed Plan: Awaiting pathology report to determine what type of neoplasm this is Oncologic evaluation OLGA EVANGELISTA MD Sep 27, 2018 12:24
[2018-09-27 14:13] VITALS: BP 103/60; PULSE 88; RESP 16
[2018-09-27] MEDS: SOD CHLORIDE 0.9% 1,000 ML IV SCH ×2 (15:04→19:46)
--- NOTE | 2018-09-27 17:14 | PN ---
Date/Time of Note Date/Time of Note DATE: 09/27/18 TIME: 17:09 Assessment/Plan VTE Prophylaxis Risk score (from Ns)>0 risk: 2 SCD applied (from Ns): Yes Pharmacological prophylaxis: NA/contraindicated Pharm contraindication: low risk/ambulating Lines/Catheters IV Catheter Type (from Nrs): Peripheral IV Assessment/Plan Assessment/Plan 28 yo woman no major PMH presents with R breast mass and abscess. # Right breast abscess - s/p I&D by Dr. Yao 09/26. - Continue IV antibiotics pending cultures - [place] prn postoperative pain. #R breast mass - Operative sample concerning for malignancy. - Prelim pathology hopefully by tomorrow. - Dr. Longoria consulted. # Normocytic anemia: - Iron panel c/w anemia of chronic disease - Transfuse for Hgb<7 or for symptomatic anemia. Result Diagram: 09/27/18 0535 09/27/18 0535 Results 24hrs Laboratory Tests Test 09/26/18 19:11 09/27/18 05:35 09/27/18 07:53 White Blood Count 9.2 6.0 # Red Blood Count 3.94 L 3.10 #L Hemoglobin 10.0 L 8.1 L Hematocrit 31.2 L 24.4 #L Mean Corpuscular Volume 79.2 L 78.7 L Mean Corpuscular Hemoglobin 25.4 L 26.1 L Mean Corpuscular Hemoglobin Concent 32.1 33.2 Red Cell Distribution Width 12.6 12.7 Platelet Count 408 376 Mean Platelet Volume 8.9 9.5 Immature Granulocytes % 0.500 H 0.300 Neutrophils % 68.1 83.3 H Lymphocytes % 19.8 13.5 L Monocytes % 7.9 2.7 Eosinophils % 3.3 0.0 Basophils % 0.4 0.2 Nucleated Red Blood Cells % 0.0 0.0 Immature Granulocytes # 0.050 H 0.020 Neutrophils # 6.3 5.0 Lymphocytes # 1.8 0.8 Monocytes # 0.7 0.2 L Eosinophils # 0.3 0.0 Basophils # 0.0 0.0 Nucleated Red Blood Cells # 0.0 0.0 Sodium Level 139 Potassium Level 3.9 Chloride Level 109 Carbon Dioxide Level 26 Anion Gap 4 L Blood Urea Nitrogen 5 #L Creatinine 0.44 Est Glomerular Filtrat Rate mL/min > 60 Glucose Level 138 # Calcium Level 8.3 L Phosphorus Level 2.9 Magnesium Level 1.9 Total Bilirubin 0.0 L Direct Bilirubin 0.00 Indirect Bilirubin 0.0 Aspartate Amino Transf (AST/SGOT) 49 H Alanine Aminotransferase (ALT/SGPT) 53 Alkaline Phosphatase 65 Total Protein 5.5 #L Albumin 2.9 #L Globulin 2.60 Albumin/Globulin Ratio 1.11 Vancomycin Level Trough 8.1 L Subjective 24 Hr Interval Summary Free Text/Dictation Got I&D yesterday. Patient overall feeling fine. Pain adequately controlled. Exam/Review of Systems Exam Vitals Vital Signs Date Temp Pulse Resp B/P (MAP) Pulse Ox O2 O2 Flow FiO2 Time Delivery Rate 09/27/18 98.1 88 16 103/60 98 14:13 (74) 09/27/18 Room Air 07:50 Intake and Output 09/26/18 09/26/18 09/27/18 1515:00 23:00 07:00 IntakeIntake Total 580 ml 1500 ml 970 ml OutputOutput Total 40 ml 1000 ml BalanceBalance 580 ml 1460 ml -30 ml Exam Gen: Well developed woman sitting up in bed Eyes: nl conjunctiva, EOMI ENMT: Moist mucous membranes, clear oropharynx Neck: supple, no lymphadenopathy Respiratory: Clear to auscultation bilaterally. Cardiovascular: regular rate and rhythm Gastrointestinal: soft, nontender, nondistended. Musculoskeletal: nl extremities to inspection, no cyanosis. Skin: Right axillary adenopathy, R breast tender and indurated skin with surgical incision with dressing. Results Results 24hrs Laboratory Tests Test 09/26/18 19:11 09/27/18 05:35 09/27/18 07:53 White Blood Count 9.2 6.0 # Red Blood Count 3.94 L 3.10 #L Hemoglobin 10.0 L 8.1 L Hematocrit 31.2 L 24.4 #L Mean Corpuscular Volume 79.2 L 78.7 L Mean Corpuscular Hemoglobin 25.4 L 26.1 L Mean Corpuscular Hemoglobin Concent 32.1 33.2 Red Cell Distribution Width 12.6 12.7 Platelet Count 408 376 Mean Platelet Volume 8.9 9.5 Immature Granulocytes % 0.500 H 0.300 Neutrophils % 68.1 83.3 H Lymphocytes % 19.8 13.5 L Monocytes % 7.9 2.7 Eosinophils % 3.3 0.0 Basophils % 0.4 0.2 Nucleated Red Blood Cells % 0.0 0.0 Immature Granulocytes # 0.050 H 0.020 Neutrophils # 6.3 5.0 Lymphocytes # 1.8 0.8 Monocytes # 0.7 0.2 L Eosinophils # 0.3 0.0 Basophils # 0.0 0.0 Nucleated Red Blood Cells # 0.0 0.0 Sodium Level 139 Potassium Level 3.9 Chloride Level 109 Carbon Dioxide Level 26 Anion Gap 4 L Blood Urea Nitrogen 5 #L Creatinine 0.44 Est Glomerular Filtrat Rate mL/min > 60 Glucose Level 138 # Calcium Level 8.3 L Phosphorus Level 2.9 Magnesium Level 1.9 Total Bilirubin 0.0 L Direct Bilirubin 0.00 Indirect Bilirubin 0.0 Aspartate Amino Transf (AST/SGOT) 49 H Alanine Aminotransferase (ALT/SGPT) 53 Alkaline Phosphatase 65 Total Protein 5.5 #L Albumin 2.9 #L Globulin 2.60 Albumin/Globulin Ratio 1.11 Vancomycin Level Trough 8.1 L Medications Medication Current Medications Sodium Chloride 1,000 ml @ 100 mls/hr Q10H IV Last administered on 09/27/18at 15:04; Admin Dose 100 MLS/HR; Start 09/26/18 at 03:46; Stop 09/27/18 at 20:00 IV Flush (NS 3 ml) 3 ml PER PROTOCOL IV ; Start 09/26/18 at 04:00 Acetaminophen (Tylenol Tab) 650 mg Q6H PRN PO .PAIN 1-3 OR TEMP; Start 09/26/18 at 04:00 Acetaminophen/ Hydrocodone Bitart ([place] (5/325)) 1 tab Q6H PRN PO .MOD PAIN 4- 6; Start 09/26/18 at 04:00 Acetaminophen/ Hydrocodone Bitart ([place] (5/325)) 2 tab Q6H PRN PO .SEVERE PAIN 7-10 Last administered on 09/27/18at 08:38; Admin Dose 2 TAB; Start 09/26/18 at 04:00 Albuterol/ Ipratropium (Duoneb) 3 ml Q2H RESP THERAPY PRN HHN SHORTNESS OF BREATH; Start 09/26/18 at 04:00 Vancomycin HCl (Vanco Iv Per Pharmacy) VANCOMYCIN PER PHARMACY PER PROTOCOL XX ; Start 09/26/18 at 09:00 Piperacillin Sod/ Tazobactam Sod 100 ml @ 200 mls/hr Q6 IVPB Last administered on 09/27/18at 12:01; Admin Dose 200 MLS/HR; Start 09/26/18 at 07:00 Influenza Virus Vaccine Quadrival (Fluzone) 0.5 ml ONCE ONCE IM* ; Start 09/28/18 at 10:00; Stop 09/28/18 at 10:01 Oxycodone/ Acetaminophen (Percocet (5/ 325)) 1 tab Q4H PRN PO .MILD PAIN (1-3); Start 09/26/18 at 19:00 Oxycodone/ Acetaminophen (Percocet (5/ 325)) 2 tab Q4H PRN PO .MODERATE PAIN (4-6); Start 09/26/18 at 19:00 Ondansetron HCl (Zofran Inj) 4 mg Q6H PRN IV NAUSEA/VOMITING Last administered on 09/26/18at 21:21; Admin Dose 4 MG; Start 09/26/18 at 19:00 Vancomycin HCl 1.25 gm/Sodium Chloride 250 ml @ 83.333 mls/ hr Q8H IVPB ; Start 09/27/18 at 17:00 Miscellaneous Information (*Rx Drug Level Order Reminder*) VANCO TROUGH 09/28 @ 1,600 ONCE ONCE XX ; Start 09/28/18 at 16:00; Stop 09/28/18 at 16:01 DOLORES PARIKH MD Sep 27, 2018 17:14
[2018-09-27] MEDS: VANCOMYCIN HCL 1.25 GM in SOD CHLORIDE 0.9% 250 ML IVPB SCH (18:19)
[2018-09-27 19:16] VITALS: BP 109/64; PULSE 95; RESP 18
[2018-09-27 19:28] VITALS: BP 169/93; PULSE 88; RESP 18
[2018-09-27] MEDS: OXYCODONE/ACETAMINOPHEN (5/325) TAB PO PRN (21:00)
[2018-09-28] MEDS: PIPER-TAZO 3.375 GM IV (PMX) 100 ML IVPB SCH ×4 (01:05→17:53)
[2018-09-28] MEDS: VANCOMYCIN HCL 1.25 GM in SOD CHLORIDE 0.9% 250 ML IVPB SCH ×3 (01:14→22:12)
[2018-09-28] MEDS: SOD CHLORIDE 0.9% 1,000 ML IV SCH (01:16)
[2018-09-28 01:30] VITALS: BP 117/58; PULSE 105; RESP 18
[2018-09-28] MEDS: HYDROCODONE/APAP (5/325) TAB PO PRN ×2 (06:01→20:51)
[2018-09-28] MEDS ORDERED: SOD CHLORIDE 0.9% 250 ML IV* ONE (06:29)
[2018-09-28 08:56] VITALS: BP 112/54; PULSE 84; RESP 16
--- NOTE | 2018-09-28 09:43 | QN ---
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
--- NOTE | 2018-09-28 14:11 | CONS ---
Assessment/Plan Assessment/Plan Hospital Course (Demo Recall) 28 yo with # Right sided Breast mass -given that her breast is now soft after I and D I believe this was most likely a complicated mastitis with seroma formation that has since been drained -will await the final path to ensure there was no evidence of malignancy -continue IV antibiotics -once her infection has resolved, pt will need follow up breast imaging down the line to ensure there was no occult malignancy #Anemia -2.2 to blood loss intraoperatively as well as from chronic inflammation -pt received 2 units of PRBCs today -will follow up post transfusion CBC -if her Hg continues to decline, will perform anemia workup at that time Thank you for the opportunity to participate in this patients care A total of 40 minutes of face to face time was spent speaking with the patient, of which greater than 50% was spent in counseling and coordination of care and the detailed question and answer session. Consultation Date/Type/Reason Admit Date/Time Sep 26, 2018 at 02:58 Date of Consultation: Sep 28, 2018 Type of Consult oncology Reason for Consultation L breast mass Requesting Provider: DOLORES PARIKH MD Date/Time of Note DATE: 09/28/18 TIME: 14:04 Hx of Present Illness MS Perkins is a pleasant 28 yo female who 3 weeks prior to admission began to feel a lump in the left axilla. The initially led to a erythematous breast and discharge from the nipple. This was initially treated with antibiotics x 7 days that she states initially worked but that there was a ball under her arm that would not go away. 09/26/18 An ultrasound of the right breast was done which revealed a 11/3x10.1x9.5cm mass. Also noted was 2.4 LN. This finding was confirmed on Breast MRI. 09/27/18 Pt underwent and I &D by Dr Yao. She states her sx have greatly improved since the I And D. Her pain is now less. She denies any constitutional sx including fevers, chills or weight loss. Constitutional: improved Eyes: no complaints ENT: no complaints Respiratory: no complaints Cardiovascular: no complaints Gastrointestinal: decreased appetite Genitourinary: no complaints Musculoskeletal: no complaints, swelling Skin: erythema, skin lesions, other (pain over right breast) Neurologic: no complaints Endocrine: no complaints Lymphatic: no complaints Past Medical History Medical History: no pertinent history Medications Current Medications IV Flush (NS 3 ml) 3 ml PER PROTOCOL IV ; Start 09/26/18 at 04:00 Acetaminophen (Tylenol Tab) 650 mg Q6H PRN PO .PAIN 1-3 OR TEMP; Start 09/26/18 at 04:00 Acetaminophen/ Hydrocodone Bitart ([place] (5/325)) 1 tab Q6H PRN PO .MOD PAIN 4- 6; Start 09/26/18 at 04:00 Acetaminophen/ Hydrocodone Bitart ([place] (5/325)) 2 tab Q6H PRN PO .SEVERE PAIN 7-10 Last administered on 09/28/18at 06:01; Admin Dose 2 TAB; Start 09/26/18 at 04:00 Albuterol/ Ipratropium (Duoneb) 3 ml Q2H RESP THERAPY PRN HHN SHORTNESS OF BREATH; Start 09/26/18 at 04:00 Vancomycin HCl (Vanco Iv Per Pharmacy) VANCOMYCIN PER PHARMACY PER PROTOCOL XX ; Start 09/26/18 at 09:00 Piperacillin Sod/ Tazobactam Sod 100 ml @ 200 mls/hr Q6 IVPB Last administered on 09/28/18at 13:31; Admin Dose 200 MLS/HR; Start 09/26/18 at 07:00 Oxycodone/ Acetaminophen (Percocet (5/ 325)) 1 tab Q4H PRN PO .MILD PAIN (1-3) Last administered on 09/27/18at 21:00; Admin Dose 1 TAB; Start 09/26/18 at 19:00 Oxycodone/ Acetaminophen (Percocet (5/ 325)) 2 tab Q4H PRN PO .MODERATE PAIN (4-6); Start 09/26/18 at 19:00 Ondansetron HCl (Zofran Inj) 4 mg Q6H PRN IV NAUSEA/VOMITING Last administered on 09/26/18at 21:21; Admin Dose 4 MG; Start 09/26/18 at 19:00 Vancomycin HCl 1.25 gm/Sodium Chloride 250 ml @ 83.333 mls/ hr Q8H IVPB ; Start 09/28/18 at 14:00 Allergies: Coded Allergies: No Known Allergy (Verified Allergy, Unknown, 11/04/07) Past Surgical History Past Surgical Hx: no surgical history Family History Significant Family History: no pertinent family hx Social History Alcohol Use: none Smoking Status: Current every day smoker (pt smokes radha) Drug Use: none Exam/Review of Systems Exam Vitals Vital Signs Date Temp Pulse Resp B/P (MAP) Pulse Ox O2 O2 Flow FiO2 Time Delivery Rate 09/28/18 98.1 84 16 112/54 96 08:56 (73) 09/27/18 Room Air 07:50 Intake and Output 09/27/18 09/27/18 09/28/18 1515:00 23:00 07:00 IntakeIntake Total 580 ml 970 ml 1700 ml BalanceBalance 580 ml 970 ml 1700 ml Constitutional: alert, oriented Psych: no complaints Head: normocephalic Eyes: nl conjunctiva ENMT: nl external ears & nose Neck: supple Respiratory: clear to auscultation, normal air movement Cardiovascular: regular rate and rhythm Gastrointestinal: soft Musculoskeletal: nl extremities to inspection Extremities: normal pulses (dressing in place. Breast is soft.no discrete masses felt) Skin: other (R Breast with erythema, dressing in place. ) Results Result Diagram: 09/28/18 0503 09/27/18 0535 Results 24hrs Laboratory Tests Test 09/28/18 05:03 White Blood Count 11.3 #H Red Blood Count 2.53 L Hemoglobin 6.7 *L Hematocrit 20.4 L Mean Corpuscular Volume 80.6 L Mean Corpuscular Hemoglobin 26.5 L Mean Corpuscular Hemoglobin Concent 32.8 Red Cell Distribution Width 12.9 Platelet Count 373 Mean Platelet Volume 10.0 Immature Granulocytes % 0.500 H Neutrophils % 62.0 Lymphocytes % 29.6 Monocytes % 6.8 Eosinophils % 0.7 Basophils % 0.4 Nucleated Red Blood Cells % 0.0 Immature Granulocytes # 0.060 H Neutrophils # 7.0 Lymphocytes # 3.3 H Monocytes # 0.8 Eosinophils # 0.1 Basophils # 0.0 Nucleated Red Blood Cells # 0.0 Pathologist Review (Hematology) YES Medications Medication Current Medications IV Flush (NS 3 ml) 3 ml PER PROTOCOL IV ; Start 09/26/18 at 04:00 Acetaminophen (Tylenol Tab) 650 mg Q6H PRN PO .PAIN 1-3 OR TEMP; Start 09/26/18 at 04:00 Acetaminophen/ Hydrocodone Bitart ([place] (5/325)) 1 tab Q6H PRN PO .MOD PAIN 4- 6; Start 09/26/18 at 04:00 Acetaminophen/ Hydrocodone Bitart ([place] (5/325)) 2 tab Q6H PRN PO .SEVERE PAIN 7-10 Last administered on 09/28/18at 06:01; Admin Dose 2 TAB; Start 09/26/18 at 04:00 Albuterol/ Ipratropium (Duoneb) 3 ml Q2H RESP THERAPY PRN HHN SHORTNESS OF BREATH; Start 09/26/18 at 04:00 Vancomycin HCl (Vanco Iv Per Pharmacy) VANCOMYCIN PER PHARMACY PER PROTOCOL XX ; Start 09/26/18 at 09:00 Piperacillin Sod/ Tazobactam Sod 100 ml @ 200 mls/hr Q6 IVPB Last administered on 09/28/18at 13:31; Admin Dose 200 MLS/HR; Start 09/26/18 at 07:00 Oxycodone/ Acetaminophen (Percocet (5/ 325)) 1 tab Q4H PRN PO .MILD PAIN (1-3) Last administered on 09/27/18at 21:00; Admin Dose 1 TAB; Start 09/26/18 at 19:00 Oxycodone/ Acetaminophen (Percocet (5/ 325)) 2 tab Q4H PRN PO .MODERATE PAIN (4-6); Start 09/26/18 at 19:00 Ondansetron HCl (Zofran Inj) 4 mg Q6H PRN IV NAUSEA/VOMITING Last administered on 09/26/18at 21:21; Admin Dose 4 MG; Start 09/26/18 at 19:00 Vancomycin HCl 1.25 gm/Sodium Chloride 250 ml @ 83.333 mls/ hr Q8H IVPB ; Sta rt 09/28/18 at 14:00 CÉSAR BENAVIDEZ M.D. Sep 28, 2018 14:11
[2018-09-28 15:13] VITALS: BP 119/67; PULSE 98; RESP 16
--- NOTE | 2018-09-28 15:37 | PN ---
Date/Time of Note Date/Time of Note DATE: 09/28/18 TIME: 15:34 Assessment/Plan VTE Prophylaxis Risk score (from Nsg)>0 risk: 2 SCD applied (from Ns): Yes Pharmacological prophylaxis: NA/contraindicated Pharm contraindication: bleeding Lines/Catheters IV Catheter Type (from Nrsg): Peripheral IV Assessment/Plan Assessment/Plan 28 yo woman no major PMH presents with R breast mass and abscess. # Right breast abscess - s/p I&D by Dr. Yao 09/26. - Continue IV antibiotics pending cultures - [place] prn postoperative pain. #R breast mass - Operative sample concerning for malignancy. 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 - Will order staging CT C/A/P - Dr. Longoria consulted. # Normocytic anemia: - Iron panel c/w anemia of chronic disease - Transfuse for Hgb<7 or for symptomatic anemia. Result Diagram: 09/28/18 0503 09/27/18 0535 Subjective 24 Hr Interval Summary Free Text/Dictation No acute overnight events. According to Dr. Yao, prelim pathology is invasive ductal carcinoma. Told patient and she was very upset. According to family, they would prefer updates and status go through her sister Macrina [phone]. Had long discussion this afternoon about risk factors for breast cancer, staging, and prognosis. Exam/Review of Systems Exam Vitals Vital Signs Date Temp Pulse Resp B/P (MAP) Pulse Ox O2 O2 Flow FiO2 Time Delivery Rate 09/28/18 98.6 98 16 119/67 97 15:13 (84) 09/27/18 Room Air 07:50 Intake and Output 09/27/18 09/27/18 09/28/18 1515:00 23:00 07:00 IntakeIntake Total 580 ml 970 ml 1700 ml BalanceBalance 580 ml 970 ml 1700 ml Exam Gen: Well developed woman sitting up in bed Eyes: nl conjunctiva, EOMI ENMT: Moist mucous membranes, clear oropharynx Neck: supple, no lymphadenopathy Respiratory: Clear to auscultation bilaterally. Cardiovascular: regular rate and rhythm Gastrointestinal: soft, nontender, nondistended. Musculoskeletal: nl extremities to inspection, no cyanosis. Skin: Right axillary adenopathy, R breast tender and indurated skin with surgical incision with dressing. Results Results 24hrs Laboratory Tests Test 09/28/18 05:03 White Blood Count 11.3 #H Red Blood Count 2.53 L Hemoglobin 6.7 *L Hematocrit 20.4 L Mean Corpuscular Volume 80.6 L Mean Corpuscular Hemoglobin 26.5 L Mean Corpuscular Hemoglobin Concent 32.8 Red Cell Distribution Width 12.9 Platelet Count 373 Mean Platelet Volume 10.0 Immature Granulocytes % 0.500 H Neutrophils % 62.0 Lymphocytes % 29.6 Monocytes % 6.8 Eosinophils % 0.7 Basophils % 0.4 Nucleated Red Blood Cells % 0.0 Immature Granulocytes # 0.060 H Neutrophils # 7.0 Lymphocytes # 3.3 H Monocytes # 0.8 Eosinophils # 0.1 Basophils # 0.0 Nucleated Red Blood Cells # 0.0 Pathologist Review (Hematology) YES Medications Medication Current Medications IV Flush (NS 3 ml) 3 ml PER PROTOCOL IV ; Start 09/26/18 at 04:00 Acetaminophen (Tylenol Tab) 650 mg Q6H PRN PO .PAIN 1-3 OR TEMP; Start 09/26/18 at 04:00 Acetaminophen/ Hydrocodone Bitart ([place] (5/325)) 1 tab Q6H PRN PO .MOD PAIN 4- 6; Start 09/26/18 at 04:00 Acetaminophen/ Hydrocodone Bitart ([place] (5/325)) 2 tab Q6H PRN PO .SEVERE PAIN 7-10 Last administered on 09/28/18at 06:01; Admin Dose 2 TAB; Start 09/26/18 at 04:00 Albuterol/ Ipratropium (Duoneb) 3 ml Q2H RESP THERAPY PRN HHN SHORTNESS OF BREATH; Start 09/26/18 at 04:00 Vancomycin HCl (Vanco Iv Per Pharmacy) VANCOMYCIN PER PHARMACY PER PROTOCOL XX ; Start 09/26/18 at 09:00 Piperacillin Sod/ Tazobactam Sod 100 ml @ 200 mls/hr Q6 IVPB Last administered on 09/28/18at 13:31; Admin Dose 200 MLS/HR; Start 09/26/18 at 07:00 Oxycodone/ Acetaminophen (Percocet (5/ 325)) 1 tab Q4H PRN PO .MILD PAIN (1-3) Last administered on 09/27/18at 21:00; Admin Dose 1 TAB; Start 09/26/18 at 19:00 Oxycodone/ Acetaminophen (Percocet (5/ 325)) 2 tab Q4H PRN PO .MODERATE PAIN (4-6); Start 09/26/18 at 19:00 Ondansetron HCl (Zofran Inj) 4 mg Q6H PRN IV NAUSEA/VOMITING Last administered on 09/26/18at 21:21; Admin Dose 4 MG; Start 09/26/18 at 19:00 Vancomycin HCl 1.25 gm/Sodium Chloride 250 ml @ 83.333 mls/ hr Q8H IVPB Last administered on 09/28/18at 14:42; Admin Dose 83.333 MLS/HR; Start 09/28/18 at 14:00 DOLORES PARIKH MD Sep 28, 2018 15:37
[2018-09-28 19:16] VITALS: BP 118/64; PULSE 88; RESP 18
[2018-09-28] MEDS ORDERED: IOHEXOL 300MG/ML 150 ML BTL ONE (21:20)
[2018-09-28] MEDS ORDERED: SOD CHLORIDE 0.9% 100 ML ONE (21:20)
[2018-09-29] MEDS: HYDROCODONE/APAP (5/325) TAB PO PRN ×2 (01:30→10:57)
[2018-09-29] MEDS: PIPER-TAZO 3.375 GM IV (PMX) 100 ML IVPB SCH ×4 (01:30→17:40)
[2018-09-29 02:00] VITALS: BP 113/70; PULSE 78; RESP 18
[2018-09-29] MEDS: VANCOMYCIN HCL 1.25 GM in SOD CHLORIDE 0.9% 250 ML IVPB SCH ×2 (06:39→14:17)
[2018-09-29 07:44] VITALS: BP 127/86; PULSE 71; RESP 18
--- NOTE | 2018-09-29 13:22 | CONS ---
Assessment/Plan Assessment/Plan Hospital Course (Demo Recall) 28 yo with # IDCA of right breast Right breast, biopsy: -- Invasive ductal carcinoma, poorly-differentiated, grade 3. -- Size: 6.5 cm maximum diameter in single largest fragment; tumor diffusely involves all submitted tissue. -- Necrosis: Present, extensive. -- Lymphovascular invasion: Not identified. -- Tumor diffusely involves biopsy margins. -pt will need neoadjuvant therapy prior to a complete mastectomy given the extent of disease -will need to follow up the prognostic markers including ER/N[place] and Her 2 status prior to deciding on the chemotherapy regimen -port a cath ordered -echocardiogram ordered in preparation for anthracycline based chemotherapy -CT C/A/P demonstrated: 1. right breast measuring 11.2 x 5.9 x 8.5 cm with cutaneous drainage. There is right breast cutaneous thickening with multiple collateral vessels.. 2. Multiple enlarged right axillary lymph nodes, the largest measuring 2.7 cm in short axis, concerning for metastasis. 3. Small bilateral pleural effusions. 4. 9.7 cm right adnexal cyst. Consider pelvic ultrasound or MRI for further evaluation. # R breast cellulitis -2/2 to underlying malignancy -s/p I & D -continue vancomycin and zosyn #9.7cm Right adnexal cyst -pelvic ultrasound ordered #Anemia -2.2 to blood loss intraoperatively as well as from chronic inflammation -s/p 2 units of PRBCs today -Hg 8.7 today Thank you for the opportunity to participate in this patients care A total of 40 minutes of face to face time was spent speaking with the patient, of which greater than 50% was spent in counseling and coordination of care and the detailed question and answer session. Consultation Date/Type/Reason Admit Date/Time Sep 26, 2018 at 02:58 Initial Consult Date 09/28/18 Type of Consult oncology Reason for Consultation Right Breast cancer Requesting Provider: DOLORES PARIKH MD Date/Time of Note DATE: 09/29/18 TIME: 13:14 24 HR Interval Summary Free Text/Dictation pt now confirmed to have high grade IDCA Exam/Review of Systems Exam Vitals Vital Signs Date Temp Pulse Resp B/P (MAP) Pulse Ox O2 O2 Flow FiO2 Time Delivery Rate 09/29/18 98.3 71 18 127/86 100 Room Air 07:44 (100) Intake and Output 3/509/28/18 09/29/18 1414:59 22:59 06:59 IntakeIntake Total 1090 ml 1370 ml 900 ml BalanceBalance 1090 ml 1370 ml 900 ml Constitutional: alert, oriented, distress Psych: anxiety, depression Head: normocephalic Eyes: nl conjunctiva ENMT: nl external ears & nose Neck: supple Respiratory: other (R Breast with dressing in place, soft) Cardiovascular: regular rate and rhythm Gastrointestinal: soft Musculoskeletal: nl extremities to inspection Extremities: normal pulses Results Result Diagram: 09/29/18 0434 09/29/18 0434 Results 24hrs Laboratory Tests Test 09/29/18 04:34 09/29/18 06:17 White Blood Count 10.2 Red Blood Count 3.27 #L Hemoglobin 8.7 #L Hematocrit 26.3 #L Mean Corpuscular Volume 80.4 L Mean Corpuscular Hemoglobin 26.6 L Mean Corpuscular Hemoglobin Concent 33.1 Red Cell Distribution Width 13.7 Platelet Count 411 Mean Platelet Volume 9.6 Immature Granulocytes % 0.600 H Neutrophils % 54.7 Lymphocytes % 33.9 Monocytes % 7.4 Eosinophils % 2.7 Basophils % 0.7 Nucleated Red Blood Cells % 0.0 Immature Granulocytes # 0.060 H Neutrophils # 5.6 Lymphocytes # 3.4 H Monocytes # 0.8 Eosinophils # 0.3 Basophils # 0.1 Nucleated Red Blood Cells # 0.0 Sodium Level 141 Potassium Level 3.6 Chloride Level 105 Carbon Dioxide Level 29 Anion Gap 7 Blood Urea Nitrogen 3 L Creatinine 0.50 Est Glomerular Filtrat Rate mL/min > 60 Glucose Level 79 # Calcium Level 9.0 Phosphorus Level 3.8 Magnesium Level 1.9 Vancomycin Level Trough 5.1 L Lab Scanned Report BLOOD TRANSFUSION Medications Medication Current Medications IV Flush (NS 3 ml) 3 ml PER PROTOCOL IV ; Start 09/26/18 at 04:00 Acetaminophen (Tylenol Tab) 650 mg Q6H PRN PO .PAIN 1-3 OR TEMP; Start 09/26/18 at 04:00 Acetaminophen/ Hydrocodone Bitart ([place] (5/325)) 1 tab Q6H PRN PO .MOD PAIN 4- 6 Last administered on 09/29/18at 01:30; Admin Dose 1 TAB; Start 09/26/18 at 04:00 Acetaminophen/ Hydrocodone Bitart ([place] (5/325)) 2 tab Q6H PRN PO .SEVERE PAIN 7-10 Last administered on 09/29/18 10:57; Admin Dose 2 TAB; Start 09/26/18 at 04:00 Albuterol/ Ipratropium (Duoneb) 3 ml Q2H RESP THERAPY PRN HHN SHORTNESS OF BREATH; Start 09/26/18 at 04:00 Vancomycin HCl (Vanco Iv Per Pharmacy) VANCOMYCIN PER PHARMACY PER PROTOCOL XX ; Start 09/26/18 at 09:00 Piperacillin Sod/ Tazobactam Sod 100 ml @ 200 mls/hr Q6 IVPB Last administered on 09/29/18 11:54; Admin Dose 200 MLS/HR; Start 09/26/18 at 07:00 Oxycodone/ Acetaminophen (Percocet (5/ 325)) 1 tab Q4H PRN PO .MILD PAIN (1-3) Last administered on 09/27/18 21:00; Admin Dose 1 TAB; Start 09/26/18 at 19:00 Oxycodone/ Acetaminophen (Percocet (5/ 325)) 2 tab Q4H PRN PO .MODERATE PAIN (4-6); Start 09/26/18 at 19:00 Ondansetron HCl (Zofran Inj) 4 mg Q6H PRN IV NAUSEA/VOMITING Last administered on 09/26/18 21:21; Admin Dose 4 MG; Start 09/26/18 at 19:00 Vancomycin HCl 1.25 gm/Sodium Chloride 250 ml @ 83.333 mls/ hr Q8H IVPB Last administered on 09/29/18 06:39; Admin Dose 83.333 MLS/HR; Start 09/28/18 at 14:00 CÉSAR BENAVIDEZ M.D. Sep 29, 2018 13:22
[2018-09-29 15:16] VITALS: BP 125/85; PULSE 70; RESP 16
--- NOTE | 2018-09-29 16:02 | PN ---
Date/Time of Note Date/Time of Note DATE: 09/29/18 TIME: 15:59 Assessment/Plan VTE Prophylaxis Risk score (from Nsg)>0 risk: 2 SCD applied (from Nsg): Yes SCD contraindicated: low risk/ambulating Pharmacological prophylaxis: NA/contraindicated Pharm contraindication: low risk/ambulating Lines/Catheters IV Catheter Type (from Nrsg): Peripheral IV Assessment/Plan Assessment/Plan 28 yo woman no major PMH presents with R breast mass and abscess. # Right breast abscess - s/p I&D by Dr. Yao 09/26. - Continue IV zosyn. Culture negative. Likely discharge to finish course of cipro. - [place] prn postoperative pain. #R breast mass - Operative sample concerning for malignancy. 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 - CT C/A/P with large breast mass and axillary lymphadenopathy; otherwise no e/o distant mets - Dr. Longoria consulted. - Port-a-cath placement for neoadjuvant chemotherapy. # Normocytic anemia: - Iron panel c/w anemia of chronic disease - Transfuse for Hgb<7 or for symptomatic anemia. Dispo: Anticipate discharge in 24-48 hours on empiric antibiotics after port placement Result Diagram: 09/29/18 0434 09/29/18 0434 Subjective 24 Hr Interval Summary Free Text/Dictation No acute overnight events. Plan for port-a-cath tomorrow Pain adequatelly controlled; patient wants to go home. Exam/Review of Systems Exam Vitals Vital Signs Date Temp Pulse Resp B/P (MAP) Pulse Ox O2 O2 Flow FiO2 Time Delivery Rate 09/29/18 98.3 70 16 125/85 100 Room Air 15:16 (98) Intake and Output 09/28/18 09/28/18 09/29/18 1515:00 23:00 07:00 IntakeIntake Total 1090 ml 1370 ml 900 ml BalanceBalance 1090 ml 1370 ml 900 ml Exam Gen: Well developed woman sitting up in bed Eyes: nl conjunctiva, EOMI ENMT: Moist mucous membranes, clear oropharynx Neck: supple, no lymphadenopathy Respiratory: Clear to auscultation bilaterally. Cardiovascular: regular rate and rhythm Gastrointestinal: soft, nontender, nondistended. Musculoskeletal: nl extremities to inspection, no cyanosis. Skin: Right axillary adenopathy, R breast tender and indurated skin with surgical incision with dressing. Results Results 24hrs Laboratory Tests Test 09/29/18 04:34 09/29/18 06:17 09/29/18 12:50 White Blood Count 10.2 Red Blood Count 3.27 #L Hemoglobin 8.7 #L Hematocrit 26.3 #L Mean Corpuscular Volume 80.4 L Mean Corpuscular Hemoglobin 26.6 L Mean Corpuscular 33.1 Hemoglobin Concent Red Cell Distribution Width 13.7 Platelet Count 411 Mean Platelet Volume 9.6 Immature Granulocytes % 0.600 H Neutrophils % 54.7 Lymphocytes % 33.9 Monocytes % 7.4 Eosinophils % 2.7 Basophils % 0.7 Nucleated Red Blood Cells % 0.0 Immature Granulocytes # 0.060 H Neutrophils # 5.6 Lymphocytes # 3.4 H Monocytes # 0.8 Eosinophils # 0.3 Basophils # 0.1 Nucleated Red Blood Cells # 0.0 Sodium Level 141 Potassium Level 3.6 Chloride Level 105 Carbon Dioxide Level 29 Anion Gap 7 Blood Urea Nitrogen 3 L Creatinine 0.50 Est Glomerular Filtrat > 60 Rate mL/min Glucose Level 79 # Calcium Level 9.0 Phosphorus Level 3.8 Magnesium Level 1.9 Vancomycin Level Trough 5.1 L Lab Scanned Report BLOOD TRANSFUSION Prothrombin Time 12.8 Prothrombin Time Ratio 1.0 INR International 0.95 Normalized Ratio Medications Medication Current Medications IV Flush (NS 3 ml) 3 ml PER PROTOCOL IV ; Start 09/26/18 at 04:00 Acetaminophen (Tylenol Tab) 650 mg Q6H PRN PO .PAIN 1-3 OR TEMP; Start 09/26/18 at 04:00 Acetaminophen/ Hydrocodone Bitart ([place] (5/325)) 1 tab Q6H PRN PO .MOD PAIN 4- 6 Last administered on 09/29/18at 01:30; Admin Dose 1 TAB; Start 09/26/18 at 04:00 Acetaminophen/ Hydrocodone Bitart ([place] (5/325)) 2 tab Q6H PRN PO .SEVERE PAIN 7-10 Last administered on 09/29/18at 10:57; Admin Dose 2 TAB; Start 09/26/18 at 04:00 Albuterol/ Ipratropium (Duoneb) 3 ml Q2H RESP THERAPY PRN HHN SHORTNESS OF BREATH; Start 09/26/18 at 04:00 Piperacillin Sod/ Tazobactam Sod 100 ml @ 200 mls/hr Q6 IVPB Last administered on 09/29/18at 11:54; Admin Dose 200 MLS/HR; Start 09/26/18 at 07:00 Oxycodone/ Acetaminophen (Percocet (5/ 325)) 1 tab Q4H PRN PO .MILD PAIN (1-3) Last administered on 09/27/18at 21:00; Admin Dose 1 TAB; Start 09/26/18 at 19:00 Oxycodone/ Acetaminophen (Percocet (5/ 325)) 2 tab Q4H PRN PO .MODERATE PAIN (4-6); Start 09/26/18 at 19:00 Ondansetron HCl (Zofran Inj) 4 mg Q6H PRN IV NAUSEA/VOMITING Last administered on 09/26/18at 21:21; Admin Dose 4 MG; Start 09/26/18 at 19:00 DOLORES PARIKH MD Sep 29, 2018 16:02
[2018-09-29] MEDS: OXYCODONE/ACETAMINOPHEN (5/325) TAB PO PRN (17:53)
[2018-09-29 19:14] VITALS: BP 130/79; PULSE 76; RESP 18
--- NOTE | 2018-09-29 22:44 | RADRPT ---
Echocardiogram Report Patient Name: SILVIA WOODALLPatient ID: [id number] : 1990 (28y 7m)Study Date: 09/29/2018 2:49:37 PM Gender: FAccession #: [id number] Tech: Kee Jung [facility] Location: 227[id number] Ref.Physician: CÉSAR BENAVIDEZ Height(Cm): BSA: Weight(Kg): Quality: AdequateAccount #: Procedures: Echocardiographic Report: Transthoracic echocardiogram with complete 2D, M-Mode, and doppler examination. Indications: Chemotherapy. Measurements: 2D/M Mode Doppler Measurement Value Normal Range Measurement Value Normal Range LVIDd 2D 4.3 [ 3.8 - 5.2 ] cm AV Peak Matias 1.2 [ 100.0 - 170.0 ] cm/sec LVIDs 2D 3.0 [ 2.2 - 3.5 ] cm AV Peak PG 6.0 [ 2.0 - 9.0 ] mmHg LVPWd 2D 1.0 [ 0.6 - 0.9 ] cm LVOT Peak Matias 0.9 [ 70.0 - 110.0 ] cm/sec IVSd 2D 1.0 [ 0.6 - 0.9 ] cm LVOT Peak PG 4.0 [ 2.0 - 6.0 ] mmHg IVS/LVPW 2D 1.0 ratio Lat E` Matias 0.1 [ 10.0 - 15.0 ] cm/sec AoR Diam 2D 2.7 [ 2.3 - 3.1 ] cm Med E` Matias 0.0 cm/sec LA/Ao 2D 1 ratio TR Peak Matias 2.5 [ 100.0 - 280.0 ] cm/sec LA Dimen 2D 3.5 [ 2.7 - 3.8 ] cm TR Peak PG 25.0 mmHg RVSP 28.0 [ 10.0 - 36.0 ] mmHg Findings: Left Ventricle: Normal left ventricular systolic function. Normal left ventricular cavity size. Normal left ventricular wall thickness. Ejection fraction is visually estimated at 65 %. Tissue Doppler/Mitral Doppler indices are within normal limits. Right Ventricle: Normal right ventricular size. Normal right ventricular systolic function. Left Atrium: The left atrium is normal in size. Right Atrium: The right atrium is normal in size. Mitral Valve: Normal appearance and function of the mitral valve with trace physiologic regurgitation. Aortic Valve: No significant aortic stenosis or insufficiency. Aortic valve not well visualized. Possible bicuspid aortic valve. Tricuspid Valve: Normal appearance of the tricuspid valve. Normal right ventricular systolic pressure. Estimated peak PA systolic pressure 28 mmHg. There is mild tricuspid regurgitation. Pulmonic Valve: Normal pulmonic valve appearance. Pericardium: Normal pericardium with no significant pericardial effusion. Aorta: Normal aortic root. IVC: Normal size and normal respiratory collapse consistent with normal right atrial pressure. Conclusions: Technically Difficult Study. Normal left ventricular systolic function. Normal left ventricular cavity size. Normal left ventricular wall thickness. Ejection fraction is visually estimated at 65 %. Tissue Doppler/Mitral Doppler indices are within normal limits. Normal right ventricular size. Normal right ventricular systolic function. The left atrium is normal in size. Normal appearance of the tricuspid valve. Normal right ventricular systolic pressure. Estimated peak PA systolic pressure 28 mmHg. There is mild tricuspid regurgitation. No significant aortic stenosis or insufficiency. Aortic valve not well visualized. Possible bicuspid aortic valve. Normal pericardium with no significant pericardial effusion. Normal aortic root. Normal size and normal respiratory collapse consistent with normal right atrial pressure. No Vegetation, masses, or thrombi seen. Electronically Signed By: Sukumar Yu 2018-09-29 22:43:23 PST
[2018-09-30] MEDS: OXYCODONE/ACETAMINOPHEN (5/325) TAB PO PRN ×3 (01:39→20:31)
[2018-09-30 02:31] VITALS: BP 120/78; PULSE 83; RESP 18
[2018-09-30] MEDS: PIPER-TAZO 3.375 GM IV (PMX) 100 ML IVPB SCH ×4 (05:59→18:27)
[2018-09-30] MEDS: NACL 0.9% 3 ML SYG IV SCH ×2 (05:59)
[2018-09-30 07:40] VITALS: BP 123/76; PULSE 86; RESP 16
[2018-09-30] MEDS ORDERED: MIDAZOLAM 1 MG/ML 2 ML INJ ONE ×2 (09:47→10:34)
[2018-09-30] MEDS ORDERED: LIDOCAINE 1%/EPI (1:100,000) (MDV) 20 ML ONE (09:48)
[2018-09-30] MEDS ORDERED: CEFAZOLIN 1 GM/50 ML (PMX) 50 ML IVPB ONE ×2 (09:48→10:00)
[2018-09-30] MEDS ORDERED: SOD CHLORIDE 0.9% 500 ML ONE (09:48)
[2018-09-30] MEDS ORDERED: HEPARIN 1000 UNITS/ML 10 ML INJ ONE (09:48)
[2018-09-30] MEDS ORDERED: FENTAnyl 50 MCG/ML VIAL ONE (09:48)
[2018-09-30] MEDS ORDERED: POLYMYXIN/BACITRACIN 1L IRRIG IRR ONE (10:00)
[2018-09-30] MEDS ORDERED: SOD CHLORIDE 0.9% 1,000 ML IV SCH (10:00)
--- NOTE | 2018-09-30 11:10 | HPN ---
Date/Time of Note Date/Time of Note DATE: 09/30/18 TIME: 11:10 Interval H&P Admission Note Pt. seen H&P reviewed: No system changes FAIZA CHASE MD Sep 30, 2018 11:10
--- NOTE | 2018-09-30 11:41 | CONS ---
Assessment/Plan Assessment/Plan Hospital Course (Demo Recall) 28 yo with # IDCA of right breast Right breast, biopsy: -- Invasive ductal carcinoma, poorly-differentiated, grade 3. -- Size: 6.5 cm maximum diameter in single largest fragment; tumor diffusely involves all submitted tissue. -- Necrosis: Present, extensive. -- Lymphovascular invasion: Not identified. -- Tumor diffusely involves biopsy margins. -pt will need neoadjuvant therapy prior to a complete mastectomy given the extent of disease -will need to follow up the prognostic markers including ER/FL and Her 2 status prior to deciding on the chemotherapy regimen -port a cath ordered -echocardiogram done and normal -CT C/A/P demonstrated: 1. right breast measuring 11.2 x 5.9 x 8.5 cm with cutaneous drainage. There is right breast cutaneous thickening with multiple collateral vessels.. 2. Multiple enlarged right axillary lymph nodes, the largest measuring 2.7 cm in short axis, concerning for metastasis. 3. Small bilateral pleural effusions. 4. 9.7 cm right adnexal cyst. Consider pelvic ultrasound or MRI for further evaluation. # R breast cellulitis -2/2 to underlying malignancy -s/p I & D -continue vancomycin and zosyn #9.7cm Right adnexal cyst -pelvic ultrasound ordered #Anemia -2.2 to blood loss intraoperatively as well as from chronic inflammation -s/p 2 units of PRBCs today -Hg 8.7 today Thank you for the opportunity to participate in this patients care A total of 40 minutes of face to face time was spent speaking with the patient, of which greater than 50% was spent in counseling and coordination of care and the detailed question and answer session. Consultation Date/Type/Reason Admit Date/Time Sep 26, 2018 at 02:58 Initial Consult Date 09/28/18 Type of Consult oncology Reason for Consultation Right sided Breast cancer Requesting Provider: DOLORES PARIKH MD Date/Time of Note DATE: 09/30/18 TIME: 11:37 24 HR Interval Summary Free Text/Dictation pt continues to feel better Exam/Review of Systems Exam Vitals Vital Signs Date Temp Pulse Resp B/P (MAP) Pulse Ox O2 O2 Flow FiO2 Time Delivery Rate 09/30/18 98.4 86 16 123/76 99 07:40 (92) 09/29/18 Room Air 15:16 Intake and Output 3/01/1209/29/18 09/30/18 1515:00 23:00 07:00 IntakeIntake Total 1310 ml 590 ml 200 ml BalanceBalance 1310 ml 590 ml 200 ml Constitutional: alert, oriented Psych: anxiety, depression Head: normocephalic Eyes: nl conjunctiva ENMT: nl external ears & nose Neck: supple Respiratory: clear to auscultation Cardiovascular: regular rate and rhythm Gastrointestinal: soft Musculoskeletal: nl extremities to inspection Results Result Diagram: 09/29/1843309/29/18433 Results 24hrs Laboratory Tests Test 09/29/18 12:50 Prothrombin Time 12.8 Prothrombin Time Ratio 1.0 INR International Normalized Ratio 0.95 Medications Medication Current Medications IV Flush (NS 3 ml) 3 ml PER PROTOCOL IV Last administered on 09/30/18at 05:59; Admin Dose 3 ML; Start 09/26/18 at 04:00 Acetaminophen (Tylenol Tab) 650 mg Q6H PRN PO .PAIN 1-3 OR TEMP; Start 09/26/18 at 04:00 Acetaminophen/ Hydrocodone Bitart ([place] (5/325)) 1 tab Q6H PRN PO .MOD PAIN 4- 6 Last administered on 09/29/18at 01:30; Admin Dose 1 TAB; Start 09/26/18 at 04:00 Acetaminophen/ Hydrocodone Bitart ([place] (5/325)) 2 tab Q6H PRN PO .SEVERE PAIN 7-10 Last administered on 09/29/18at 10:57; Admin Dose 2 TAB; Start 09/26/18 at 04:00 Albuterol/ Ipratropium (Duoneb) 3 ml Q2H RESP THERAPY PRN HHN SHORTNESS OF BREATH; Start 09/26/18 at 04:00 Piperacillin Sod/ Tazobactam Sod 100 ml @ 200 mls/hr Q6 IVPB Last administered on 09/30/18at 05:59; Admin Dose 200 MLS/HR; Start 09/26/18 at 07:00 Oxycodone/ Acetaminophen (Percocet (5/ 325)) 1 tab Q4H PRN PO .MILD PAIN (1-3) Last administered on 09/30/18at 01:39; Admin Dose 1 TAB; Start 09/26/18 at 19:00 Oxycodone/ Acetaminophen (Percocet (5/ 325)) 2 tab Q4H PRN PO .MODERATE PAIN (4-6); Start 09/26/18 at 19:00 Ondansetron HCl (Zofran Inj) 4 mg Q6H PRN IV NAUSEA/VOMITING Last administered on 09/26/18at 21:21; Admin Dose 4 MG; Start 09/26/18 at 19:00 Sodium Chloride 1,000 ml @ 30 mls/hr Q24H IV ; Start 09/30/18 at 10:00 CÉSAR BENAVIDEZ M.D. Sep 30, 2018 11:41
--- NOTE | 2018-09-30 15:28 | PN ---
Date/Time of Note Date/Time of Note DATE: 09/30/18 TIME: 15:26 Assessment/Plan VTE Prophylaxis Risk score (from Nsg)>0 risk: 2 SCD applied (from Nsg): Yes Pharmacological prophylaxis: NA/contraindicated Pharm contraindication: low risk/ambulating Lines/Catheters IV Catheter Type (from Nrsg): Port a Cath Assessment/Plan Assessment/Plan 28 yo woman no major PMH presents with R breast mass and abscess. # Right breast abscess - s/p I&D by Dr. Yao 09/26. - Continue IV zosyn. Culture negative. Likely discharge to finish course of cipro. - [place] prn postoperative pain. #Ovarian cyst - Dr. Nuñez consulted for further evaluation #R breast mass - Operative sample concerning for malignancy. 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 - CT C/A/P with large breast mass and axillary lymphadenopathy; otherwise no e/o distant mets - Dr. Longoria consulted. - Port-a-cath placement for neoadjuvant chemotherapy. # Normocytic anemia: - Iron panel c/w anemia of chronic disease - Transfuse for Hgb<7 or for symptomatic anemia. Dispo: Anticipate discharge in 24-48 hours on empiric antibiotics after port placement Result Diagram: 09/30/18 1213 09/29/18 0434 Subjective 24 Hr Interval Summary Free Text/Dictation No acute overnight events. Got port-a-cath placed today. Exam/Review of Systems Exam Vitals Vital Signs Date Temp Pulse Resp B/P (MAP) Pulse Ox O2 O2 Flow FiO2 Time Delivery Rate 09/30/18 98.4 86 16 123/76 99 07:40 (92) 09/29/18 Room Air 15:16 Intake and Output 09/29/18 09/29/18 09/30/18 1515:00 23:00 07:00 IntakeIntake Total 1310 ml 590 ml 200 ml BalanceBalance 1310 ml 590 ml 200 ml Exam Gen: Well developed woman sitting up in bed Eyes: nl conjunctiva, EOMI ENMT: Moist mucous membranes, clear oropharynx Neck: supple, no lymphadenopathy Respiratory: Clear to auscultation bilaterally. Cardiovascular: regular rate and rhythm Gastrointestinal: soft, nontender, nondistended. Musculoskeletal: nl extremities to inspection, no cyanosis. Skin: Right axillary adenopathy, R breast tender and indurated skin with surgical incision with dressing. Results Results 24hrs Laboratory Tests Test 09/30/18 12:13 White Blood Count 9.7 Red Blood Count 3.78 L Hemoglobin 9.9 L Hematocrit 29.8 L Mean Corpuscular Volume 78.8 L Mean Corpuscular Hemoglobin 26.2 L Mean Corpuscular Hemoglobin Concent 33.2 Red Cell Distribution Width 14.0 Platelet Count 482 H Mean Platelet Volume 8.9 Immature Granulocytes % 0.400 Neutrophils % 73.4 Lymphocytes % 19.6 Monocytes % 4.9 Eosinophils % 1.2 Basophils % 0.5 Nucleated Red Blood Cells % 0.0 Immature Granulocytes # 0.040 H Neutrophils # 7.1 Lymphocytes # 1.9 Monocytes # 0.5 Eosinophils # 0.1 Basophils # 0.1 Nucleated Red Blood Cells # 0.0 Medications Medication Current Medications IV Flush (NS 3 ml) 3 ml PER PROTOCOL IV Last administered on 09/30/18 05:59; A dmin Dose 3 ML; Start 09/26/18 at 04:00 Acetaminophen (Tylenol Tab) 650 mg Q6H PRN PO .PAIN 1-3 OR TEMP; Start 09/26/18 at 04:00 Acetaminophen/ Hydrocodone Bitart ([place] (5/325)) 1 tab Q6H PRN PO .MOD PAIN 4- 6 Last administered on 09/29/18 01:30; Admin Dose 1 TAB; Start 09/26/18 at 04:00 Acetaminophen/ Hydrocodone Bitart ([place] (5/325)) 2 tab Q6H PRN PO .SEVERE PAIN 7-10 Last administered on 09/29/18at 10:57; Admin Dose 2 TAB; Start 09/26/18 at 04:00 Albuterol/ Ipratropium (Duoneb) 3 ml Q2H RESP THERAPY PRN HHN SHORTNESS OF BREATH; Start 09/26/18 at 04:00 Piperacillin Sod/ Tazobactam Sod 100 ml @ 200 mls/hr Q6 IVPB Last administered on 09/30/18at 13:12; Admin Dose 200 MLS/HR; Start 09/26/18 at 07:00 Oxycodone/ Acetaminophen (Percocet (5/ 325)) 1 tab Q4H PRN PO .MILD PAIN (1-3) Last administered on 09/30/18 14:34; Admin Dose 1 TAB; Start 09/26/18 at 19:00 Oxycodone/ Acetaminophen (Percocet (5/ 325)) 2 tab Q4H PRN PO .MODERATE PAIN (4-6); Start 09/26/18 at 19:00 Ondansetron HCl (Zofran Inj) 4 mg Q6H PRN IV NAUSEA/VOMITING Last administered on 09/26/18at 21:21; Admin Dose 4 MG; Start 09/26/18 at 19:00 DOLORES PARIKH MD Sep 30, 2018 15:28
[2018-09-30 15:39] VITALS: BP 129/86; PULSE 90; RESP 15
--- NOTE | 2018-09-30 16:51 | HP ---
Date/Time of Note Date/Time of Note DATE: 09/30/18 TIME: 16:28 Assessment/Plan VTE Prophylaxis Risk score (from Ns)>0 risk: 2 SCD applied (from Ns): Yes Pharmacological prophylaxis: NA/contraindicated Pharm contraindication: low risk/ambulating Lines/Catheters IV Catheter Type (from [facility]): [place] line still needed: No Urinary Cath still in place: No Assessment/Plan Problems: (1) Abscess of right breast Status: Acute (2) Cellulitis of right breast Status: Acute (3) Pelvic mass Status: Acute (4) Pelvic mass in female Status: Acute Assessment/Plan RT sided breast cancer,. Invasive ductal carcinoma of the right breast Status post biopsy confirmed Needs referral to breast surgeon and oncologist CT showed large right-sided pelvic masses, Paraovarian versus mesenteric neoplasm can not ruled out Patient at high risk for genetic cancers due to age of Diagnosis of breast cancer.. Cannot rule out ovarian neoplasm? Recommended to check tumor markers including CA 125, CA-19-9, LDH, inhibiting AFB Recommended [employer] oncologist consultation while the patient is in house after abov e labs Currently no evidence of ovarian torsion, Patient is asymptomatic Plan of care discussed with primary attending Dr. Cardenas and the patient. he will consult [employer] oncologist after above labs. Result Diagram: 09/30/18 1213 09/29/18 0434 Results 24hrs Laboratory Tests Test 09/30/18 12:13 White Blood Count 9.7 Red Blood Count 3.78 L Hemoglobin 9.9 L Hematocrit 29.8 L Mean Corpuscular Volume 78.8 L Mean Corpuscular Hemoglobin 26.2 L Mean Corpuscular Hemoglobin Concent 33.2 Red Cell Distribution Width 14.0 Platelet Count 482 H Mean Platelet Volume 8.9 Immature Granulocytes % 0.400 Neutrophils % 73.4 Lymphocytes % 19.6 Monocytes % 4.9 Eosinophils % 1.2 Basophils % 0.5 Nucleated Red Blood Cells % 0.0 Immature Granulocytes # 0.040 H Neutrophils # 7.1 Lymphocytes # 1.9 Monocytes # 0.5 Eosinophils # 0.1 Basophils # 0.1 Nucleated Red Blood Cells # 0.0 HPI/ROS Admit Date/Time Admit Date/Time Sep 26, 2018 at 02:58 Hx of Present Illness 09/30/2018 ROS Kaia was consulted by internal medicine for evaluation of this pleasant 28-year-old female who presented to [facility] for evaluation of right-sided breast erythema, tenderness and enlargement questionable for possible abscess. Imaging was concerning for possible right breast cancer. Patient underwent biopsy of the right breast lesion. She had a CT of abdomen and pelvis that showed evidence of Bilateral enlarged pelvic masses, Large 9.3 x 6.6 x 8.5 cm cysts involving both ovaries likely a paraovarian cyst. Mesenteric cyst cannot be excluded . Pelvic us shows a 9 cm RT sided ovarian cystic mass with displacement of IUD in the lower uterine segment . I was consulted for [employer] evaluation. Patient reports she had felt initially a small pimple in the right submaxillary area 2 months ago that gradually increase in the size and was associated with the change in the color of the skin for the past 3 weeks. She reports she was seen at [facility] due to increase in the size and extension of the erythema to the lower side of the right breast. She was diagnosed with possible breast abscess. She was given antibiotics. Patient reported feeling increasing the change in the color of the breast in the area of abnormality to purplish red color associated with some pulsation in the area. She presented to the [facility] and imaging done that was concerning for possible breast neoplasm. She underwent breast biopsy that was consistent with right invasive ductal carcinoma of the right breast. Patient denied any pelvic pain. She reports her cycles has been irregular for the past 4 years after she had Mirena IUD placed for contraception. She reports also has mild dysmenorrhea. Other than that does not complain of any lower abdominal pain pelvic pain or any other symptoms. Constitutional: no complaints Eyes: no complaints ENT: no complaints Respiratory: no complaints Cardiovascular: no complaints Gastrointestinal: no complaints Genitourinary: bleeding, other (Normal uterine bleeding) Musculoskeletal: no complaints Skin: erythema (There is extensive red/purplish discoloration and erythema in the right breast most specifically in the right lower part of the breast consistent with inflammatory breast disorder.), rash, skin lesions, other Neurologic: no complaints Endocrine: no complaints Lymphatic: no complaints Psychological: no complaints PMH/Family/Social Past Medical History Denies any medical problems in the past [employer] history: Status post x2, 13 and 11 years old children SAB x1, TAB x1 Denies any history of abnormal Pap smear in the past Denies any history of abnormal breast lump or mass or nipple discharge prior to 2 months ago when her symptoms are started Currently using Mirena IUD for contraception placed about 3-4 years ago Medical History: no pertinent history Medications Current Medications IV Flush (NS 3 ml) 3 ml PER PROTOCOL IV Last administered on 09/30/18 05:59; Admin Dose 3 ML; Start 09/26/18 at 04:00 Acetaminophen (Tylenol Tab) 650 mg Q6H PRN PO .PAIN 1-3 OR TEMP; Start 09/26/18 at 04:00 Acetaminophen/ Hydrocodone Bitart ([place] (5/325)) 1 tab Q6H PRN PO .MOD PAIN 4- 6 Last administered on 09/29/18 01:30; Admin Dose 1 TAB; Start 09/26/18 at 04:00 Acetaminophen/ Hydrocodone Bitart ([place] (5/325)) 2 tab Q6H PRN PO .SEVERE PAIN 7-10 Last administered on 09/29/18 10:57; Admin Dose 2 TAB; Start 09/26/18 at 0 4:00 Albuterol/ Ipratropium (Duoneb) 3 ml Q2H RESP THERAPY PRN HHN SHORTNESS OF BREATH; Start 09/26/18 at 04:00 Piperacillin Sod/ Tazobactam Sod 100 ml @ 200 mls/hr Q6 IVPB Last administered on 09/30/18at 13:12; Admin Dose 200 MLS/HR; Start 09/26/18 at 07:00 Oxycodone/ Acetaminophen (Percocet (5/ 325)) 1 tab Q4H PRN PO .MILD PAIN (1-3) Last administered on 09/30/18 14:34; Admin Dose 1 TAB; Start 09/26/18 at 19:00 Oxycodone/ Acetaminophen (Percocet (5/ 325)) 2 tab Q4H PRN PO .MODERATE PAIN (4-6); Start 09/26/18 at 19:00 Ondansetron HCl (Zofran Inj) 4 mg Q6H PRN IV NAUSEA/VOMITING Last administered on 09/26/18 21:21; Admin Dose 4 MG; Start 09/26/18 at 19:00 Coded Allergies: No Known Allergy (Verified Allergy, Unknown, 11/04/07) Past Surgical History Past Surgical Hx: no surgical history Family History Significant Family History: no pertinent family hx Social History Alcohol Use: none Smoking Status: Current every day smoker (pt smokes radha) Drug Use: none Exam/Review of Systems Vital Signs Vitals Vital Signs Date Temp Pulse Resp B/P (MAP) Pulse Ox O2 O2 Flow FiO2 Time Delivery Rate 09/30/18 97.4 90 15 129/86 99 15:39 (100) 09/29/18 Room Air 15:16 Intake and Output 09/29/18 09/29/18 09/30/18 1515:00 23:00 07:00 IntakeIntake Total 1310 ml 590 ml 200 ml BalanceBalance 1310 ml 590 ml 200 ml Exam Constitutional: alert, oriented, well developed Psych: no complaints, nl mood/affect Head: normocephalic, atraumatic Eyes: nl conjunctiva, EOMI Neck: supple Respiratory: clear to auscultation, normal air movement, other (Dressing in the RT breast in the lower part related to recent surgery noted. There is a port on the upper left side of the chest wall noted,.) Cardiovascular: regular rate and rhythm, nl pulses Gastrointestinal: soft, nl liver, spleen, non-tender Genitourinary - Female: other (SSE: cervix normal. IUD string and the stem of the IUD seen at the lower part of the cervix related to IUD displacement. There is a large cystic mass in the RT side of the pelvis, non tender, appears smooth and about 10 cm size. Exam limited due to large RT sided pelvic cystic mass. No fullness or tenderness in the left side noted. ) Musculoskeletal: nl extremities to inspection, nl gait and stance Extremities: normal pulses Neurological: UTILITY LOCATOR II-XII intact, nl mental status Skin: nl turgor Additional Comments Laboratory Tests Test 09/30/18 12:13 White Blood Count 9.7 Red Blood Count 3.78 L Hemoglobin 9.9 L Hematocrit 29.8 L Mean Corpuscular Volume 78.8 L Mean Corpuscular Hemoglobin 26.2 L Mean Corpuscular Hemoglobin Concent 33.2 Red Cell Distribution Width 14.0 Platelet Count 482 H Mean Platelet Volume 8.9 Immature Granulocytes % 0.400 Neutrophils % 73.4 Lymphocytes % 19.6 Monocytes % 4.9 Eosinophils % 1.2 Basophils % 0.5 Nucleated Red Blood Cells % 0.0 Immature Granulocytes # 0.040 H Neutrophils # 7.1 Lymphocytes # 1.9 Monocytes # 0.5 Eosinophils # 0.1 Basophils # 0.1 Nucleated Red Blood Cells # 0.0 PROCEDURE: Pelvic ultrasound and color-flow Doppler of the adnexa. CLINICAL INDICATION: Ovarian cyst TECHNIQUE: Multiple sagittal, oblique and transverse real time images were obtained of the lower abdomen and pelvis using a transabdominal as well a transvaginal approach. Color-flow Doppler of the adnexa was performed COMPARISON: CT abdomen pelvis 09/28/2018 FINDINGS: The uterus is normal limits in size measuring 6.19 x 2.77 x 4.17 cm. Myometrial echoes are homogeneous without focal lesions. Intrauterine device seen at the endocervical canal and recommend clinical correlation. Remainder of the endometrium is unremarkable without focal lesion normal thickness maximal AP diameter 0.66 cm. The ovaries are normal in size of the right measuring 3.6 x 1.82 x 2.37 cm and the left measuring 2.77 x 1.55 x 1.62 cm. No ovarian masses. Flow to both ovaries without ultrasonic evidence of ovarian torsion. Note that there is a large 9.3 x 6.6 x 8.5 cm cyst that extends along the superior pelvic region abutting the right and left ovaries consistent with a large para ovarian cyst or less likely mesenteric cyst. Follow-up is suggested. No other adnexal masses or free fluid. IMPRESSION: 1. Large 9.3 x 6.6 x 8.5 cm cysts involving both ovaries likely a paraovarian cyst. Mesenteric cyst cannot be excluded. Follow-up is suggested. 2. Unremarkable uterus. Intrauterine device located at the endocervical canal and recommend clinical correlation. 3. No other adnexal masses or free fluid. 4. No ovarian masses. No ultrasonic evidence of ovarian torsion. PROCEDURE: CT Chest, Abdomen, and Pelvis with contrast. CLINICAL INDICATION: Breast cancer, staging TECHNIQUE: Routine axial tomographic images of the chest, abdomen and pelvis were obtained from the thoracic inlet to the symphysis pubis following administration of 125 cc of Isovue 300. Coronal and sagittal reformatted images were obtained from the axial source images. Images were reviewed on a high- resolution PACS workstation. The total exam CTDI equals 9.81 mGy and the total exam DLP equals 773.33 mGy-cm. One or more of the following dose reduction tech niques were used: Automated exposure control, adjustment of the mA and / or kV according to patient size, or use of iterative reconstruction technique. DICOM images are available. COMPARISON: MRI chest dated 09/26/2018 FINDINGS: There is a thick-walled air and fluid collection within the right breast with cutaneous drainage measuring approximately 11.2 x 5.9 x 8.5 cm. There is right breast cutaneous thickening and multiple collateral superficial vessels. The lungs demonstrate small bilateral pleural effusions. No focal airspace opacity or pneumothorax is seen. No pulmonary nodules or masses are identified. There is no abnormal interstitial thickening. The trachea and proximal bronchi are unremarkable. The visualized thyroid is unremarkable. The heart is grossly normal in size and configuration. The aorta demonstrates normal branching pattern. The aorta is normal in caliber. There is no evidence of aortic dissection. There are enlarged right axillary lymph nodes, the largest measuring 2.7 cm in short axis. The liver is normal in size and contour. No focal intrahepatic masses are identified. There is no intra or extrahepatic biliary dilatation. The gallbladder is unremarkable by CT criteria. The spleen, pancreas, and adrenal glands are unremarkable. The kidneys are symmetric in size and demonstrate normal enhancement. No renal calculi, renal parenchymal mass, hydronephrosis or hydroureter is identified. The urinary bladder is unremarkable. The bowel demonstrates normal course and caliber. There is no evidence of bowel obstruction. No bowel wall thickening is identified. The appendix is normal in appearance. There is an IUD within the lower uterine segment. There is a 7.6 x 9.7 x 8.3 cm right adnexal cyst. No intraperitoneal free fluid, free air, or abscess identified. No retroperitoneal, mesenteric, or inguinal adenopathy is identified. The abdominal aorta and major branching vessels are normal in caliber and demonstrate vascular calcifications. The osseous structures demonstrate degenerative changes . No significant subcutaneous soft tissue abnormality is identified. IMPRESSION: 1. Thick-walled air and fluid collection in the right breast measuring 11.2 x 5.9 x 8.5 cm with cutaneous drainage. There is right breast cutaneous thickening with multiple collateral vessels. Findings are highly concerning for neoplasm. 2. Multiple enlarged right axillary lymph nodes, the largest measuring 2.7 cm in short axis, concerning for metastasis. 3. Small bilateral pleural effusions. 4. 9.7 cm right adnexal cyst. Consider pelvic ultrasound or MRI for further evaluation. 5. IUD appears misplaced, within the lower uterine segment. CHINYERE ESTRADA MD Sep 30, 2018 16:38
[2018-09-30 19:46] VITALS: BP 121/80; PULSE 85; RESP 16
[2018-10-01] MEDS: PIPER-TAZO 3.375 GM IV (PMX) 100 ML IVPB SCH ×4 (00:04→18:36)
[2018-10-01 02:14] VITALS: BP 118/75; PULSE 81; RESP 16
[2018-10-01] MEDS: OXYCODONE/ACETAMINOPHEN (5/325) TAB PO PRN (05:32)
[2018-10-01] MEDS ORDERED: POLYETHYLENE GLYCOL 17 GM PACKET PO SCH (06:00)
[2018-10-01] MEDS ORDERED: DOCUSATE SODIUM 100 MG CAP PO SCH (06:00)
[2018-10-01 07:32] VITALS: BP 108/68; PULSE 81; RESP 18
--- NOTE | 2018-10-01 10:18 | CONS ---
Assessment/Plan Assessment/Plan Hospital Course (Demo Recall) 28 yo with # IDCA of right breast Right breast, biopsy: -- Invasive ductal carcinoma, poorly-differentiated, grade 3. -- Size: 6.5 cm maximum diameter in single largest fragment; tumor diffusely involves all submitted tissue. -- Necrosis: Present, extensive. -- Lymphovascular invasion: Not identified. -- Tumor diffusely involves biopsy margins. -pt will need neoadjuvant therapy prior to a complete mastectomy given the extent of disease -will need to follow up the prognostic markers including ER/LA and Her 2 status prior to deciding on the chemotherapy regimen -port a cath ordered -echocardiogram done and normal -CT C/A/P demonstrated: 1. right breast measuring 11.2 x 5.9 x 8.5 cm with cutaneous drainage. There is right breast cutaneous thickening with multiple collateral vessels.. 2. Multiple enlarged right axillary lymph nodes, the largest measuring 2.7 cm in short axis, concerning for metastasis. 3. Small bilateral pleural effusions. 4. 9.7 cm right adnexal cyst. Consider pelvic ultrasound or MRI for further evaluation. # R breast cellulitis -2/2 to underlying malignancy -s/p I & D -continue vancomycin and zosyn #9.7cm Right adnexal cyst -pelvic ultrasound reveals a Large 9.3 x 6.6 x 8.5 cm cysts involving both ovaries likely a paraovarian cyst. Mesenteric cyst cannot be excluded. -ELECTRICAL CAD DESIGNER ONC to evaluate the patient this afternoon #Anemia -2.2 to blood loss intraoperatively as well as from chronic inflammation -s/p 2 units of PRBCs today -Hg 8.7 today Thank you for the opportunity to participate in this patients care A total of 40 minutes of face to face time was spent speaking with the patient, of which greater than 50% was spent in counseling and coordination of care and the detailed question and answer session. Consultation Date/Type/Reason Admit Date/Time Sep 26, 2018 at 02:58 Initial Consult Date 09/28/18 Type of Consult oncology Reason for Consultation breast cancer Requesting Provider: DOLORES PARIKH MD Date/Time of Note DATE: 10/01/18 TIME: 09:50 24 HR Interval Summary Free Text/Dictation pt now confirmed to have ER-/LA disease. her 2 is still pending Exam/Review of Systems Exam Vitals Vital Signs Date Temp Pulse Resp B/P (MAP) Pulse Ox O2 O2 Flow FiO2 Time Delivery Rate 10/01/18 98.0 81 18 108/68 99 07:32 (81) 09/29/18 Room Air 15:16 Intake and Output 09/30/18 09/30/18 10/01/18 1515:00 23:00 07:00 IntakeIntake Total 1060 ml 580 ml 700 ml BalanceBalance 1060 ml 580 ml 700 ml Constitutional: alert, oriented Psych: no complaints, anxiety, depression Head: normocephalic Eyes: nl conjunctiva ENMT: nl external ears & nose Neck: supple Respiratory: clear to auscultation Cardiovascular: regular rate and rhythm Gastrointestinal: soft Genitourinary - Female: nl adnexae Skin: other (R Breast with healing owund s/p I & D) Results Result Diagram: 10/01/1852310/01/18523 Results 24hrs Laboratory Tests Test 09/30/18 12:13 10/01/18 05:24 White Blood Count 9.7 8.1 Red Blood Count 3.78 L 3.55 L Hemoglobin 9.9 L 9.5 L Hematocrit 29.8 L 28.8 L Mean Corpuscular Volume 78.8 L 81.1 L Mean Corpuscular Hemoglobin 26.2 L 26.8 L Mean Corpuscular Hemoglobin Concent 33.2 33.0 Red Cell Distribution Width 14.0 14.1 Platelet Count 482 H 479 H Mean Platelet Volume 8.9 9.3 Immature Granulocytes % 0.400 0.600 H Neutrophils % 73.4 55.6 Lymphocytes % 19.6 30.8 Monocytes % 4.9 8.2 Eosinophils % 1.2 4.2 Basophils % 0.5 0.6 Nucleated Red Blood Cells % 0.0 0.0 Immature Granulocytes # 0.040 H 0.050 H Neutrophils # 7.1 4.5 Lymphocytes # 1.9 2.5 Monocytes # 0.5 0.7 Eosinophils # 0.1 0.3 Basophils # 0.1 0.1 Nucleated Red Blood Cells # 0.0 0.0 Alpha Fetoprotein 2.49 Carcinoembryonic Antigen 0.4 CA 19-9 Antigen 22.0 CA 125 Antigen 191.0 H Serum HCG, Qualitative NEGATIVE Sodium Level 140 Potassium Level 4.0 Chloride Level 102 Carbon Dioxide Level 29 Anion Gap 9 Blood Urea Nitrogen 9 Creatinine 0.68 Est Glomerular Filtrat Rate mL/min > 60 Glucose Level 96 Calcium Level 9.2 Phosphorus Level 4.2 Magnesium Level 2.1 Medications Medication Current Medications IV Flush (NS 3 ml) 3 ml PER PROTOCOL IV Last administered on 09/30/18 05:59; Admin Dose 3 ML; Start 09/26/18 at 04:00 Acetaminophen (Tylenol Tab) 650 mg Q6H PRN PO .PAIN 1-3 OR TEMP; Start 09/26/18 at 04:00 Acetaminophen/ Hydrocodone Bitart (Black (5/325)) 1 tab Q6H PRN PO .MOD PAIN 4- 6 Last administered on 09/29/18 01:30; Admin Dose 1 TAB; Start 09/26/18 at 04:00 Acetaminophen/ Hydrocodone Bitart (Black (5/325)) 2 tab Q6H PRN PO .SEVERE PAIN 7-10 Last administered on 09/29/18 10:57; Admin Dose 2 TAB; Start 09/26/18 at 04:00 Albuterol/ Ipratropium (Duoneb) 3 ml Q2H RESP THERAPY PRN HHN SHORTNESS OF BREATH; Start 09/26/18 at 04:00 Piperacillin Sod/ Tazobactam Sod 100 ml @ 200 mls/hr Q6 IVPB Last administered on 10/01/18 06:17; Admin Dose 200 MLS/HR; Start 09/26/18 at 07:00 Oxycodone/ Acetaminophen (Percocet (5/ 325)) 1 tab Q4H PRN PO .MILD PAIN (1-3) Last administered on 09/30/18 14:34; Admin Dose 1 TAB; Start 09/26/18 at 19:00 Oxycodone/ Acetaminophen (Percocet (5/ 325)) 2 tab Q4H PRN PO .MODERATE PAIN (4-6) Last administered on 10/01/18 05:32; Admin Dose 2 TAB; Start 09/26/18 at 19:00 Ondansetron HCl (Zofran Inj) 4 mg Q6H PRN IV NAUSEA/VOMITING Last administered on 09/26/18 21:21; Admin Dose 4 MG; Start 09/26/18 at 19:00 Docusate Sodium (Colace) 100 mg BID PO Last administered on 3/8/19at 06:18; Admin Dose 100 MG; Start 10/01/18 at 06:00 Polyethylene Glycol (Miralax) 17 gm DAILY PO Last administered on 10/01/18at 06:18; Admin Dose 17 GM; Start 10/01/18 at 06:00 CÉSAR BENAVIDEZ M.D. Oct 01, 2018 10:18
--- NOTE | 2018-10-01 13:16 | QN ---
Documentation Comment denies any pelvic pain CT abdomen bilat adnexal cysts /Us of pelvis rt side cystic mass unilocular ,poss paraovarian cyst,mesenteric cyst S/P rt breast Bx invasive ductal carcinoma poorly diff grade [address] Eli who already arrange with LASTING ROOM SUPERVISOR Oncology ( Dr Pringle) who is coming this PM for pelvic status. CA 125 elevated but nonspecific will f/u with Mate Chief oncology JAHAIRA RODRIGEZ MD Oct 01, 2018 13:16
[2018-10-01 14:16] VITALS: BP 131/87; PULSE 98; RESP 18
[2018-10-01] MEDS ORDERED: CLIN150C17 PO (17:34)
[2018-10-01] MEDS ORDERED: SENN-120 PO (17:34)
--- NOTE | 2018-10-01 17:37 | PDOCDIS ---
Discharge Instructions DIAGNOSIS Discharge Diagnosis Right Breast abscess Right breast invasive ductal carcinoma CONDITION [id number] Patient Condition: Mbasi5s Fair HOME CARE INSTRUCTIONS: [id number] Diet Instructions: [id number] Regular ACTIVITY: [id number] Activity Restrictions: [id number] No Restrictions FOLLOW UP/APPOINTMENTS Follow-up Plan 1. Take all medications as prescribed. Complete ten more days of clindamycin as prescribed 2. Take ibuprofen or tylenol as needed for mild pain. 3. For severe pain not responsive to the above, take [place]. You can't mix [place] with alcohol or drive after taking it. 4. Follow up with Dr. Longoria and Dr. Pringle as scheduled. DOLORES PARIKH MD Oct 01, 2018 17:37
--- NOTE | 2018-10-01 19:27 | CONS ---
DATE OF ADMISSION: 09/26/2018 DATE OF CONSULTATION: 10/01/2018 HISTORY OF PRESENT ILLNESS: This is an unfortunate 28-year-old female, para 2, who was admitted to [facility] for large breast mass. Unfortunately, this is a breast cancer and the ma ss is infected. She was admitted since 09/26/2018. The biopsy is positive and she is being drained and I and D'd by general surgery. Medical oncology was also consulted. During further workup of the abdomen and pelvis with CT and pelvic ultrasound, she was found to have a large ovarian mass about 1 0 x 8 x 8 cm. There were no ascites, no adenopathy and no carcinomatosis. Her CA-125 was elevated a t 191 and therefore FINISHING TRIMMER oncology consultation was requested. The patient now is actually ready for d ischarge with the treatment to be rendered as outpatient. PAST MEDICAL HISTORY: None significant. ALLERGIES: NO KNOWN DRUG ALLERGIES. PAST SURGICAL HISTORY: Unremarkable. SOCIAL HISTORY: The patient has 2 children, one age 13 and one age 11. SOCIAL HISTORY: Noncontributory. PHYSICAL EXAMINATION: VITAL SIGNS: The patient is afebrile, blood pressure within normal limits. GENERAL: The patient is no apparent distress. BREAST: There is dressing in the right breast. ABDOMEN: Soft. PELVIC: Deferred. EXTREMITIES: No edema. LABORATORY STUDIES: Again, CA-125 was elevated as per above. The patient was anemic after her I and D of the breast, but now hemoglobin is up to 9.5 with white count of 8.1 and platelet of 179. IMPRESSION: 1. Large breast infected carcinoma. 2. A 10 cm right ovarian mass. 3. Elevated CA-125. RECOMMENDATIONS: 1. Breast cancer treatment obviously is a priority. 2. The patient can follow up with me in the office to get a better pelvic exam. 3. I can address her ovarian mass laparoscopically as outpatient in about a month or 2. 4. I stressed the importance of initiating her breast cancer treatment. 5. The patient will follow up with Dr. Longoria and she will be referred to me in the office. DISPOSITION: The patient will be discharged home later today and follow up in the office. Dictated By: LEXIE RAMOS/RYAN Conf#: [id number] DID#: [id number] CC: ABBE ARAYA MD; OLGA EVANGELISTA MD; DOLORES PARIKH MD;*End*
[2018-10-01 19:30] VITALS: BP 128/75; PULSE 93; RESP 18
--- NOTE | 2018-10-01 19:44 | DS ---
Date/Time of Note Date/Time of Note DATE: 10/01/18 TIME: 19:44 Discharge Summary Admission/Discharge Info Admit Date/Time Sep 26, 2018 at 02:58 Discharge Date/Time Oct 01, 2018 Discharge Diagnosis Right Breast abscess Right breast invasive ductal carcinoma Patient Condition: Good Consults Dr. Yao, General surgery Dr. Longoria, Medical oncology Dr. Paz, Gynecology Dr. Pringle, Gynecologic oncology Procedures 09/26/18 1. Incision and drainage 2. Partial excisional biopsy right breast mass Hx of Present Illness This is a 28-year-old female with no significant past medical history who presents the ER complaining of right breast swelling, redness and tenderness. Several months ago, around June, she noticed a nonpainful lump in her R breast. Then, for the past several weeks it intermittently grew swollen, red, and painful before self-resolving. She also reported nipple discharge. She initially presented to an outside hospital and was diagnosed with cysts and there was taking antibiotic. Hospital Course She was started on empiric antibiotics. Breast US and MRI concerning for a necrotic mass along with abscess. She was taken to the OR by Dr. Yao for I&D and had an uneventful postoperative course. Unfortunately, pathology from the mass returned positive for invasive ductal carcinoma. Dr. Longoria was consulted. CT chest/abdomen/pelvis demonstrates R axillary lymphadenopathy but no obvious distant mets. She was noted to have a large ovarian cyst. Tumor markers sent; she did have elevated Ca 19-9. Dr. Paz was consulted from gynecology and Dr. Solares from wheel tuner oncology. The patient will be discharged to finish a course of clindamycin and followup with oncology for chemotherapy. Home Meds Active Scripts Clindamycin Hcl* (Cleocin*) 150 Mg Cap, 450 MG PO Q6, #40 CAP Prov:DOLORES PARIKH MD 10/01/18 Sennosides* (Senna Lax*) 8.6 Mg Tablet, 2 TAB PO DAILY, #30 TAB Prov:DOLORES PARIKH MD 10/01/18 Follow-up Plan 1. Take all medications as prescribed. Complete ten more days of clindamycin as prescribed 2. Take ibuprofen or tylenol as needed for mild pain. 3. For severe pain not responsive to the above, take [place]. You can't mix [place] with alcohol or drive after taking it. 4. Follow up with Dr. Longoria and Dr. Pringle as scheduled. Primary Care Provider [facility] Time spent on discharge: > 30 minutes Pending Labs Laboratory Tests Test 10/01/18 05:24 White Blood Count 8.1 10^3/ul (4.8-10.8) Red Blood Count 3.55 10^6/ul (4.20-5.40) Hemoglobin 9.5 g/dl (12.0-16.0) Hematocrit 28.8 % (37.0-47.0) Mean Corpuscular Volume 81.1 fl (82.0-101.0) Mean Corpuscular Hemoglobin 26.8 pg (29.0-33.0) Mean Corpuscular Hemoglobin Concent 33.0 g/dl (32.0-37.0) Red Cell Distribution Width 14.1 % (11.5-14.5) Platelet Count 479 10^3/UL (140-415) Mean Platelet Volume 9.3 fl (7.4-10.4) Immature Granulocytes % 0.600 % (0.001-0.429) Neutrophils % 55.6 % (39.0-77.0) Lymphocytes % 30.8 % (15.0-51.0) Monocytes % 8.2 % (0.0-11.0) Eosinophils % 4.2 % (0.0-7.0) Basophils % 0.6 % (0.0-2.0) Nucleated Red Blood Cells % 0.0 /100WBC (0.0-0.0) Immature Granulocytes # 0.050 10^3/ul (0.0-0.031) Neutrophils # 4.5 10^3/ul (1.6-7.5) Lymphocytes # 2.5 10^3/ul (0.8-2.9) Monocytes # 0.7 10^3/ul (0.3-0.9) Eosinophils # 0.3 10^3/ul (0.0-0.5) Basophils # 0.1 10^3/ul (0.0-0.1) Nucleated Red Blood Cells # 0.0 10^3/ul (0.0-0.0) Sodium Level 140 mmol/L (135-144) Potassium Level 4.0 mmol/L (3.5-5.1) Chloride Level 102 mmol/L (97-110) Carbon Dioxide Level 29 mmol/L (21-31) Anion Gap 9 (5-13) Blood Urea Nitrogen 9 mg/dl (7-20) Creatinine 0.68 mg/dl (0.44-1.00) Est Glomerular Filtrat Rate mL/min > 60 mL/min (>60) Glucose Level 96 mg/dl (70-220) Calcium Level 9.2 mg/dl (8.4-10.2) Phosphorus Level 4.2 mg/dl (2.5-4.9) Magnesium Level 2.1 mg/dl (1.7-2.5) DOLORES PARIKH MD Oct 01, 2018 19:44
== END 2018-10-01 20:25 | disposition home or self-care (01) | DRG 584 ==
LOC: FTE 22:54 → 2NE 09-26 02:58
PROVIDERS: ADMIT Internal Medicine; ATTEND Internal Medicine
PROC: 0HBT0ZX Excision of Right Breast, Open Approach, Diagnostic (ICD-10-PCS; principal; 2018-09-26 15:30)
PROC: 30233N1 Transfusion of Nonautologous Red Blood Cells into Peripheral Vein, Percutaneous Approach (ICD-10-PCS; 2018-09-28)
PROC: 02H633Z Insertion of Infusion Device into Right Atrium, Percutaneous Approach (ICD-10-PCS; 2018-09-30)
PROC: B244YZZ Ultrasonography of Right Heart using Other Contrast (ICD-10-PCS; 2018-09-30)
DX: C50.911 Malignant neoplasm of unspecified site of right female breast (principal); D62 Acute posthemorrhagic anemia; R59.0 Localized enlarged lymph nodes; D63.8 Anemia in other chronic diseases classified elsewhere; Z17.1 Estrogen receptor negative status [ER-]; N83.201 Unspecified ovarian cyst, right side; F12.90 Cannabis use, unspecified, uncomplicated
CPT/HCPCS: 36415; 36430; 36561; 71045; 71260; 71550; 74177; 76642; 76856; 76942; 80048; 80053; 80202; 81003; 81025; 82105; 82378; 82728; 83540; 83605; 83735; 84100; 84703; 85025; 85610; 85730; 86301; 86304; 86850; 86900; 86901; 86920; 87040; 87070; 87075; 87102; 88307; 88341; 88342; 90686; 93005; 93306; 96365; 96375; C1788; J0690; J1100; J1170; J1644; J2250; J2270; J2405; J2543; J3010; J3370; J7030; J7040; J7050; P9016; Q9967